=== PATIENT | male | born 1940 | race Caucasian/White ===

== ENCOUNTER 2018-12-30 09:21 | Day surgery (SDC) | payer MEDICARE, OTHER ==
[2018-12-27 08:47] VITALS: BMI 38.5
[~2018-12-30 09:21] MED LIST: DEXAMETHASONE SOD PHOSPHATE 10 MG/ML 1 ML VIAL IV ONE; HEPARIN SODIUM,PORCINE 5,000 UNIT/ML 1 ML VIAL SQ ONE; LACTATED RINGERS 1,000 ML IV SCH; LIDOCAINE 1% 20 ML VIAL (10MG/ML) FOR IV START INTRADERMA PRN; MIDAZOLAM 2 MG/2 ML VIAL IV PRN; Pre Op ABX Message 1 EACH MISC MISCELLANE ONE; fentaNYL (PF) 50 MCG/ML 2 ML AMP IV PRN
[2018-12-30 10:04] VITALS: TEMP 97
[2018-12-30] MEDS ORDERED: ceFAZolin 2,000 MG in DEXTROSE/WATER 1 50ML.BAG IVPB STA (10:20)
[2018-12-30] MEDS ORDERED: ceFAZolin 3 GM in SODIUM CHLORIDE 0.9% 100 ML IVPB ONE (10:35)
[2018-12-30] MEDS ORDERED: ceFAZolin IN SWFI 2 GM/20 ML SYRINGE IVP STA (10:35)
--- NOTE | 2018-12-30 12:04 | P.GSHP ---
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 Patient presents today for wide local excision of left forearm melanoma. Past Medical History Past Medical History: Cancer, Hypertension, Prostate Disorder History of Any Multi-Drug Resistant Organisms: None Reported Past Surgical History: Prostate Surgery Additional Past Surgical History / Comment(s): for prostate cancer , some fingers reatatched, moles removed for cancer Past Anesthesia/Blood Transfusion Reactions: No Reported Reaction Smoking Status: Former smoker - Past Family History Father History Unknown: Yes Family Medical History: Cancer Additional Family Medical History / Comment(s): prostate Medications and Allergies Home Medications Medication Instructions Recorded Confirmed Type Allopurinol [Zyloprim] 300 mg PO DAILY 12/27/18 12/30/18 History Ascorbic Acid [Vitamin C] 500 mg PO DAILY 12/27/18 12/30/18 History Aspirin [Adult Low Dose Aspirin EC] 81 mg PO DAILY 12/27/18 12/30/18 History Losartan/Hydrochlorothiazide 1 each PO HS 12/27/18 12/30/18 History [Losartan-Hctz 100-25 mg Tab] Multivitamins, Thera [Multivitamin 1 tab PO DAILY 12/27/18 12/30/18 History (formulary)] Niacin (Inositol Niacinate) 500 mg PO BID 12/27/18 12/30/18 History [Niacin 500 mg Capsule] [place]-3 Fatty Acids [[place]-3] 1,000 mg PO DAILY 12/27/18 12/30/18 History Potassium Chloride 10 meq PO DAILY 12/27/18 12/30/18 History Propranolol HCl [Inderal LA] 60 mg PO QAM 12/27/18 12/30/18 History Allergies Allergy/AdvReac Type Severity Reaction Status Date / Time No Known Allergies Allergy Verified 12/30/18 09:50 Surgical - Exam Vital Signs Temp Pulse Resp BP Pulse Ox 97 F L 62 16 185/84 99 12/30/18 09:54 12/30/18 09:54 12/30/18 09:54 12/30/18 09:54 12/30/18 09:54 - General well developed, well nourished, no distress - Eyes PERRL - ENT normal pinna - Neck no masses - Respiratory normal expansion - Cardiovascular Rhythm: regular - Abdomen Abdomen: soft, non tender - Integumentary Left forearm melanoma. Patient's melanomas has been previously biopsied. biopsy. The incision site is clean dry and intact. Assessment and Plan Assessment: Left forearm melanoma in situ. We'll perform wide local excision.
[2018-12-30] MEDS ORDERED: PROPOFOL 10 MG/ML 20 ML VIAL IV ONE (12:34)
[2018-12-30] MEDS ORDERED: MIDAZOLAM 2 MG/2 ML VIAL ONE (12:34)
[2018-12-30] MEDS ORDERED: fentaNYL (PF) 50 MCG/ML 2 ML AMP ONE (12:34)
[2018-12-30] MEDS ORDERED: BUPIVACAIN-EPI 0.5%-1:200,000 30 ML VIAL SQ ONE (12:50)
--- NOTE | 2018-12-30 13:05 | P.OP ---
Date of Procedure: 12/30/18 Preoperative Diagnosis: Left forearm melanoma in situ Postoperative Diagnosis: Defer to pathology Procedure(s) Performed: Wide local excision of left forearm melanoma Anesthesia: MAC Surgeon: Reuben Santos Estimated Blood Loss (ml): 5 Pathology: other (Left forearm melanoma in situ) Condition: stable Disposition: PACU Description of Procedure: The patient was placed on the operative table in the supine position. He received IV sedation. The melanoma site was marked. Elliptical skin incision was made around the melanoma. The specimen measured 2.5 x 5 cm. The skin was incised with a 15 blade. Using to cautery the subcutaneous tissues were divided. The wound was reapproximated 2 layers using 3-0 Vicryl and 3-0 Monocryl suture. Dermabond dressing was applied. Patient top she'll well and was sent to recovery in stable condition.
[2018-12-30 13:46] VITALS: BP 155/80; PULSE 61; RESP 18
== END 2018-12-30 13:59 | disposition home or self-care (01) ==
LOC: OR 09:21
PROVIDERS: ATTEND Surgery
DX: D03.62 Melanoma in situ of left upper limb, including shoulder (principal); I10 Essential (primary) hypertension; M10.9 Gout, unspecified; Z85.46 Personal history of malignant neoplasm of prostate; Z87.891 Personal history of nicotine dependence; Z79.82 Long term (current) use of aspirin; Z79.899 Other long term (current) drug therapy
CPT/HCPCS: 11606; 88305; 88342; 88341; J2250; J1644; J1100; J0690; J3010; J2704; 93005

== ENCOUNTER → 2021-08-11 | Outpatient (CLI) | payer MEDICARE, OTHER ==
--- NOTE | 2021-08-11 17:01 | ECHOF ---
Referral Reason:[id number] Chemo expousre MEASUREMENTS -------- HEIGHT: 182.9 cm WEIGHT: 131.5 kg BP: RVIDd: 3.6 cm (< 3.3) IVSd: 2.0 cm (0.6 - 1.1) LVIDd: 4.6 cm (3.9 - 5.3) LVPWd: 1.8 cm (0.6 - 1.1) IVSs: 2.7 cm LVIDs: 2.7 cm LVPWs: 2.5 cm Ao Diam: 4.1 cm (2.0 - 3.7) AV Cusp: 2.4 cm (1.5 - 2.6) LA Diam: 3.5 cm (2.7 - 3.8) MV EXCURSION: 15.662 mm (> 18.000) MV EF SLOPE: 49 mm/s (70 - 150) EPSS: 0.8 cm MV E Jarrod: 0.53 m/s MV DecT: 298 ms MV A Jarrod: 0.91 m/s MV E/A Ratio: 0.58 RAP: 5.00 mmHg RVSP: 10.74 mmHg FINDINGS -------- This was a technically difficult study with suboptimal views. The left ventricular size is normal. There is severe concentric left ventricular hypertrophy. Ove rall left ventricular systolic function is normal with, an EF between 55 - 60 %. The right ventricle is mildly enlarged. The left atrial size is normal. The right atrial size is normal. Lumason used The aortic valve was not well visualized. The mitral valve is normal. There is trace mitral regurgitation. The tricuspid valve appears structurally normal. Trace tricuspid regurgitation present. Right reece tricular systolic pressure is normal at < 35 mmHg. There is no pulmonic regurgitation present. The aortic root size is normal. IVC Not well visulized. There is no pericardial effusion. CONCLUSIONS -------- 1. The left ventricular size is normal. 2. There is severe concentric left ventricular hypertrophy. 3. Overall left ventricular systolic function is normal with, an EF between 55 - 60 %. 4. The right ventricle is mildly enlarged. 5. There is trace mitral regurgitation. 6. Trace tricuspid regurgitation present. ROD TAPE OPERATOR: Abigail Godoy RDCS
== END | disposition home or self-care (01) ==
LOC: RADECHMAIN 10:59
PROVIDERS: ATTEND Internal Medicine Hematology & Oncology
DX: Z01.818 Encounter for other preprocedural examination (principal); I08.1 Rheumatic disorders of both mitral and tricuspid valves
CPT/HCPCS: C8929; Q9950; 93306

== ENCOUNTER 2021-08-29 07:34 | Day surgery (SDC) | payer MEDICARE, OTHER ==
[2021-08-29] MEDS ORDERED: diazePAM 5 MG TAB PO STA (08:47)
[2021-08-29 08:51] VITALS: RESP 18; TEMP 98.1
[2021-08-29] MEDS ORDERED: METHOTREXATE SODIUM (PF) 25 MG/ML 2 ML VIAL INTRATHECA ONE (09:00)
--- NOTE | 2021-08-29 12:42 | FL ---
Lumbar puncture INDICATION: Chemotherapy insertion FINDINGS: Fluoroscopy time: 2 minutes 26 seconds. Images obtained: 3. The procedure was explained to the patient. Risks complications and benefits were discussed. Alternat giuliana were discussed. All questions were answered. Informed consent was obtained. A timeout was performed. The L4-5 level was chosen for access. Maximum barrier sterile technique was utilized. The skin was cl eansed with Betadine and the patient sterilely prepped and draped in the usual manner. The skin and d eeper tissue was anesthetized with 1% Lidocaine. Utilizing a 22-gauge spinal needle the spinal canal was accessed with difficulty due to the narrow access. There was a slow CSF return which was initiall y slightly bloody. Total of 4 cc were withdrawn. The procedure was then turned over 4 chemotherapy in sertion. Following insertion and flush of the chemotherapeutic agent procedure was returned to radiology and t he stylette was replaced and the needle withdrawn. Fluoroscopic spot images were obtained. The patient tolerated the procedure well. Discharge instructions were discussed with the patient. Th e patient was transferred to the floor for postprocedure recovery. IMPRESSIONS: 1. Successful Lumbar Puncture for chemotherapy placement.
[2021-08-29 14:22] VITALS: BP 172/73; PULSE 63
== END 2021-08-29 15:01 | disposition home or self-care (01) ==
LOC: RADPROMAIN 07:34
PROVIDERS: ATTEND Internal Medicine Hematology & Oncology
DX: C61 Malignant neoplasm of prostate (principal)
CPT/HCPCS: 88108; 62328; J9260

== ENCOUNTER 2021-09-19 07:55 | Day surgery (SDC) | payer MEDICARE, OTHER ==
[2021-09-19] MEDS ORDERED: METHOTREXATE SODIUM (PF) 25 MG/ML 2 ML VIAL INTRATHECA ONE (09:00)
[2021-09-19 09:28] VITALS: TEMP 98.5
--- NOTE | 2021-09-19 10:18 | P.PCN ---
Date of Procedure: 09/19/21 Preoperative Diagnosis: DLBCL Postoperative Diagnosis: DLBCL Procedure(s) Performed: LP with IR, prophylactic IT MTX administration Anesthesia: local Estimated Blood Loss (ml): 0 IV fluids (ml): 0 Urine output (ml): 0 Pathology: none sent Condition: stable Disposition: same day Indications for Procedure: DLBCL, testicular Description of Procedure: LP performed by Interventional Radiologist. 3.8cc CSF removed. 12mg Sterile, preservative free methotrexate diluted with sterile NS to volume of 2.4cc was instilled over 2.5 minutes slow push. Flushed line with 1.4cc sterile NS in latex free syringe. Pt tolerated well. No symptoms reported during procedure.
--- NOTE | 2021-09-19 10:32 | FL ---
Lumbar puncture INDICATION: Chemotherapy FINDINGS: Fluoroscopy time: 0.39 minutes. Images obtained: One. The procedure was explained to the patient. Risks complications and benefits were discussed. Alternat giuliana were discussed. All questions were answered. Informed consent was obtained. A timeout was performed. The L4-5 level was chosen for access. Maximum barrier sterile technique was utilized. The skin was cl eansed with Betadine and the patient sterilely prepped and draped in the usual manner. The skin and d eeper tissue was anesthetized with 1% Lidocaine. Utilizing a 22-gauge 5 inch spinal needle the spinal canal was accessed. Approximately 1 1/2 inches remained above the skin surface. Good CSF return was evident. Approximately 3.8 mL of clear CSF was obtained. Procedure was turned over to oncology for in jection. Following completion of the injection the stylet was replaced and the needle withdrawn. The patient tolerated the procedure well. Discharge instructions were discussed with the patient. Th e patient was transferred to the floor for monitoring prior to discharge. IMPRESSIONS: 1. Successful Lumbar Puncture for chemotherapy.
[2021-09-19 12:36] VITALS: RESP 16
[2021-09-19 14:08] VITALS: BP 124/59; PULSE 68
== END 2021-09-19 13:58 | disposition home or self-care (01) ==
LOC: RADPROMAIN 07:55
PROVIDERS: ATTEND Internal Medicine Hematology & Oncology
DX: Z51.11 Encounter for antineoplastic chemotherapy (principal); C83.30 Diffuse large B-cell lymphoma, unspecified site
CPT/HCPCS: 96450; 88108; 62328; J9260

== ENCOUNTER 2021-10-11 08:01 | Day surgery (SDC) | payer MEDICARE, OTHER ==
[2021-10-11 08:43] VITALS: RESP 16
[2021-10-11] MEDS ORDERED: METHOTREXATE SODIUM (PF) 25 MG/ML 2 ML VIAL INTRATHECA ONE (09:00)
--- NOTE | 2021-10-11 11:14 | FL ---
Lumbar puncture INDICATION: Chemotherapy insertion FINDINGS: Fluoroscopy time: 1 minute seconds. Images obtained: 2. The procedure was explained to the patient. Risks complications and benefits were discussed. Alternat giuliana were discussed. All questions were answered. Informed consent was obtained. A timeout was performed. The L3-L4 level was chosen for access. Large pillow was utilized under the abdomen. Maximum barrier s terile technique was utilized. The skin was cleansed with Betadine and the patient sterilely prepped and draped in the usual manner. The skin and deeper tissue was anesthetized with 1% Lidocaine. Utiliz ing a 5 inch 22-gauge spinal needle the spinal canal was accessed with difficulty. This was a bloody tap was poor CSF return. Replacing the stylet and adjustment are returned better CSF flow. Total of 4 mL of blood-tinged CSF was returned into 2 vials 2 mL each. Vials are labeled. Procedure was turned over to oncology for chemotherapy insertion. Upon completion of the chemotherapy, the stylet was replaced and the needle withdrawn. The patient to lerated the procedure well. IMPRESSIONS: 1. Successful Lumbar Puncture.
[2021-10-11 12:17] VITALS: TEMP 97.1
[2021-10-11 15:17] VITALS: BP 174/76; PULSE 83
== END 2021-10-11 15:30 | disposition home or self-care (01) ==
LOC: RADPROMAIN 08:01 → 6PED 10:14 → RADPROMAIN 15:30
PROVIDERS: ATTEND Internal Medicine Hematology & Oncology
DX: Z51.11 Encounter for antineoplastic chemotherapy (principal); C83.38 Diffuse large B-cell lymphoma, lymph nodes of multiple sites
CPT/HCPCS: 88108; 96450; J9260; 62328

== ENCOUNTER 2021-11-07 08:06 | Day surgery (SDC) | payer MEDICARE, OTHER ==
[2021-11-07 08:35] VITALS: RESP 16; TEMP 98.3
[2021-11-07] MEDS ORDERED: METHOTREXATE SODIUM (PF) 25 MG/ML 2 ML VIAL INTRATHECA ONE (09:00)
--- NOTE | 2021-11-07 11:08 | FL ---
PROCEDURE: Lumbar puncture, access for intrathecal chemotherapy. 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 Intrathecal chemotherap y 4 of 4. COMPLICATIONS: None SEDATION: None. The patient and the patient's vital signs were monitored by qualified independent radiology pe jass. TECHNIQUE: The procedure and potential risks were explained to patient and an informed consent was obtained with teach back. Site and side was verified. A time out was performed. The patient was placed prone on the fluoroscopy table and the L4-L5 level was localized and the skin was marked and was prepped and draped in the usual sterile fashion. Lidocaine was used for local anesthesia. Utilizing fluoroscopic guidance a 22-gauge 5 inch spinal nee dle was placed through the skin and into the subarachnoid space. Clear CSF was visualized but was very slow. Flow eventually stopped. Manipulation subsequently yielde d blood-tinged CSF. Approximately 3.5 mL of clear but slightly blood-tinged cerebral spinal fluid was obtained. Subsequently, oncology nurse practitioner Nikki Gallagher administered the intrathecal chemotherapy over 2 minutes. The patient tolerated the procedure well and was sent back to the recovery room in satisfactory condi tion. The fluid was sent to the lab for analysis. The estimated blood loss was minimal. The patient's condition was unchanged following the procedure. Fluoroscopy time: 12 seconds Total images: 2 IMPRESSION: Successful accumulation of 3.5 mL of CSF. Oncology nurse practitioner administered the last round of intrathecal chemotherapy.
[2021-11-07 15:06] VITALS: BP 127/67; PULSE 64
== END 2021-11-07 14:03 | disposition home or self-care (01) ==
LOC: RADPROMAIN 08:06
PROVIDERS: ATTEND Internal Medicine Hematology & Oncology
DX: C83.30 Diffuse large B-cell lymphoma, unspecified site (principal)
CPT/HCPCS: 62328; 88108; J9260

== ENCOUNTER 2021-11-19 18:19 | Inpatient (IN) | payer OTHER, MEDICARE ==
--- NOTE | 2021-11-19 18:33 | ED ---
General Adult HPI - General Chief complaint: Weakness Stated complaint: weakness Time Seen by Provider: 11/19/21 18:29 Source: patient, EMS Mode of arrival: EMS Limitations: physical limitation - History of Present Illness Initial comments: Patient presents to the ED by ambulance for evaluation. Patient states that he last received chemotherapy treatment for his lymphoma 2 weeks ago, and he states that he has felt generally weak for the past 2-3 days or so. Patient also states that he feels that he is dehydrated. Patient states that he has not been eating or drinking much recently due to lack of appetite. Patient also states that he has fallen a couple of times over the past 2 days due to his generalized weakness, but he denies sustaining any injuries or LOC/syncope. Patient denies having any pain, fever or chills, headache injury, headache, focal numbness/weakness/neuro deficit, visual changes, speech difficulty, neck/back/extremity pain, chest pain, dyspnea, cough or cold symptoms, dizziness, palpitations, abdominal pain, nausea/vomiting/diarrhea, bloody or melanotic stool, dysuria or urinary symptoms, or any other symptoms or comp laints. Patient states that he is fully vaccinated against Covid. - Related Data Home Medications Medication Instructions Recorded Confirmed Ascorbic Acid [Vitamin C] 500 mg PO DAILY 12/27/18 11/07/21 Aspirin [Adult Low Dose Aspirin EC] 81 mg PO DAILY 12/27/18 10/27/21 Losartan/Hydrochlorothiazide 1 each PO DAILY 12/27/18 11/07/21 [Losartan-Hctz 100-25 mg Tab] Multivitamins, Thera [Multivitamin 1 tab PO DAILY 12/27/18 10/27/21 (formulary)] Niacin (Inositol Niacinate) 500 mg PO BID 12/27/18 10/27/21 [Niacin 500 mg Capsule] [place]-3 Fatty Acids [[place]-3] 1,000 mg PO DAILY 12/27/18 10/27/21 Potassium Chloride [Potassium 10 meq PO DAILY 12/27/18 10/27/21 Chloride ER] Propranolol HCl [Inderal LA] 60 mg PO QAM 12/27/18 10/27/21 allopurinoL [Zyloprim] 300 mg PO DAILY 12/27/18 10/27/21 Allergies Allergy/AdvReac Type Severity Reaction Status Date / Time No Known Allergies Allergy Verified 11/19/21 18:27 Review of Systems ROS Statement: Those systems with pertinent positive or pertinent negative responses have been documented in the HPI. ROS Other: All systems not noted in ROS Statement are negative. Past Medical History Past Medical History: Cancer, Hypertension, Prostate Disorder Additional Past Medical History / Comment(s): Diffuse large B cell lymphoma, testicular, prostate, melanoma, currently getting chemo for Lymphoma got it Sunday, sunday and Sunday History of Any Multi-Drug Resistant Organisms: None Reported Past Surgical History: Prostate Surgery Additional Past Surgical History / Comment(s): for prostate cancer , some fingers reatatched, moles removed for cancer, lumbar puncture and Intrathecal Chemo Past Anesthesia/Blood Transfusion Reactions: No Reported Reaction Past Psychological History: No Psychological Hx Reported Smoking Status: Former smoker Past Alcohol Use History: Daily, Rare Past Drug Use History: None Reported - Past Family History Father History Unknown: Yes Family Medical History: Cancer Additional Family Medical History / Comment(s): prostate General Exam Limitations: physical limitation General appearance: alert, in no apparent distress Head exam: Present: atraumatic Eye exam: Present: normal appearance, PERRL, EOMI ENT exam: Present: normal oropharynx, mucous membranes dry Neck exam: Present: other (Trachea is in midline). Absent: tenderness, meningismus, full ROM Respiratory exam: Present: normal lung sounds bilaterally. Absent: respiratory distress, wheezes, rales, rhonchi, stridor Cardiovascular Exam: Present: regular rate, normal rhythm, normal heart sounds, other (Normal radial pulses bilaterally) GI/Abdominal exam: Present: soft. Absent: distended, tenderness, guarding Rectal exam: Present: normal rectal tone, other (Brown stool). Absent: tenderness Extremities exam: Present: other (Negative Homans sign bilaterally). Absent: tenderness, pedal edema, calf tenderness Neurological exam: Present: alert, oriented X3. Absent: motor sensory deficit Psychiatric exam: Present: normal affect, normal mood Skin exam: Present: warm, dry, intact, pallor Course Vital Signs 11/19/21 11/19/21 11/19/21 18:27 19:51 20:00 Temperature 98.3 F Pulse Rate 72 72 87 Respiratory 18 24 22 Rate Blood Pressure 131/63 131/75 131/60 O2 Sat by Pulse 92 L 100 97 Oximetry - Reevaluation(s) Reevaluation #1: 11/19/21 20:01 Case, H&P, test results and ED management thus far were discussed with Dr. Szymanski. She accepts hospital admission. She recommends hematology/oncology consultation. She has no further recommendations at this time. 11/19/21 20:15 Patient denies development of any new symptoms while in the ED. Patient and son are aware the patient's test results and my discussion with Dr. Szymanski as above. They both agree with blood transfusion and hospital admission at this time. EKG Findings - EKG Comments: EKG Findings:: Normal sinus rhythm, right bundle branch block, ventricular rate of 72 bpm, normal WA interval, QRS duration of 128 ms, normal QT interval, normal axis, no significant change when compared to 12/30/2018 EKG Medical Decision Making - Medical Decision Making I suspect that the patient's generalized weakness is likely secondary to dehydration and anemia. Patient has been hydrated with IV fluids in the ED, and a RBC blood transfusion has been ordered. Patient has been hemodynamically stable while in the ED. Dr. Szymanski has accepted hospital admission. - Lab Data Result diagrams: 11/19/21 18:57 11/19/21 18:57 Lab Results 11/19/21 11/19/21 11/19/21 Range/Units 18:57 18:57 18:57 WBC 3.0 L (3.8-10.6) k/uL RBC 1.37 L (4.30-5.90) m/uL Hgb 4.6 L* (13.0-17.5) gm/dL Hct 13.4 L* (39.0-53.0) % MCV 98.0 (80.0-100.0) fL MCH 33.5 (25.0-35.0) pg MCHC 34.2 (31.0-37.0) g/dL RDW 16.0 H (11.5-15.5) % Plt Count 51 L (150-450) k/uL MPV 10.1 Neutrophils % (Manual) 64 % Band Neuts % (Manual) 13 % Lymphocytes % (Manual) 6 % Monocytes % (Manual) 9 % Eosinophils % (Manual) 2 % Metamyelocytes % 4 % Myelocytes % 1 % Blast Cells % 1 H* % Neutrophils # (Manual) 2.30 (1.3-7.7) k/uL Lymphocytes # (Manual) 0.18 L (1.0-4.8) k/uL Monocytes # (Manual) 0.27 (0-1.0) k/uL Eosinophils # (Manual) 0.06 (0-0.7) k/uL Metamyelocytes # (Man) 0.12 H (0) k/uL Myelocytes # (Manual) 0.03 H (0) k/uL Blast Cells # (Man) 0.03 H (0) k/uL Nucleated RBCs 0 (0-0) /100 WBC Manual Slide Review Performed Polychromasia Present Poikilocytosis Slight Anisocytosis (manual) Present PT 12.4 H (9.0-12.0) sec INR 1.2 H (<1.2) APTT 22.6 (22.0-30.0) sec D-Dimer 0.69 H (<0.60) mg/L FEU Sodium 134 L (137-145) mmol/L Potassium 3.5 (3.5-5.1) mmol/L Chloride 104 (98-107) mmol/L Carbon Dioxide 22 (22-30) mmol/L Anion Gap 8 mmol/L BUN 27 H (9-20) mg/dL Creatinine 1.71 H (0.66-1.25) mg/dL Est GFR (CKD-EPI)AfAm 43 (>60 ml/min/1.73 sqM) Est GFR (CKD-EPI)NonAf 37 (>60 ml/min/1.73 sqM) Glucose 126 H (74-99) mg/dL Plasma Lactic Acid Mariano (0.7-2.0) mmol/L Calcium 7.9 L (8.4-10.2) mg/dL Magnesium 1.6 (1.6-2.3) mg/dL Total Bilirubin 1.5 H (0.2-1.3) mg/dL AST 22 (17-59) U/L ALT 20 (4-49) U/L Alkaline Phosphatase 68 (38-126) U/L Troponin I (0.000-0.034) ng/mL Total Protein 4.6 L (6.3-8.2) g/dL Albumin 2.7 L (3.5-5.0) g/dL TSH 2.410 (0.465-4.680) mIU/L Stool Occult Blood (Negative) Coronavirus (PCR) (Not Detectd) 11/19/21 11/19/21 11/19/21 Range/Units 18:57 18:57 18:57 WBC (3.8-10.6) k/uL RBC (4.30-5.90) m/uL Hgb (13.0-17.5) gm/dL Hct (39.0-53.0) % MCV (80.0-100.0) fL MCH (25.0-35.0) pg MCHC (31.0-37.0) g/dL RDW (11.5-15.5) % Plt Count (150-450) k/uL MPV Neutrophils % (Manual) % Band Neuts % (Manual) % Lymphocytes % (Manual) % Monocytes % (Manual) % Eosinophils % (Manual) % Metamyelocytes % % Myelocytes % % Blast Cells % % Neutrophils # (Manual) (1.3-7.7) k/uL Lymphocytes # (Manual) (1.0-4.8) k/uL Monocytes # (Manual) (0-1.0) k/uL Eosinophils # (Manual) (0-0.7) k/uL Metamyelocytes # (Man) (0) k/uL Myelocytes # (Manual) (0) k/uL Blast Cells # (Man) (0) k/uL Nucleated RBCs (0-0) /100 WBC Manual Slide Review Polychromasia Poikilocytosis Anisocytosis (manual) PT (9.0-12.0) sec INR (<1.2) APTT (22.0-30.0) sec D-Dimer (<0.60) mg/L FEU Sodium (137-145) mmol/L Potassium (3.5-5.1) mmol/L Chloride (98-107) mmol/L Carbon Dioxide (22-30) mmol/L Anion Gap mmol/L BUN (9-20) mg/dL Creatinine (0.66-1.25) mg/dL Est GFR (CKD-EPI)AfAm (>60 ml/min/1.73 sqM) Est GFR (CKD-EPI)NonAf (>60 ml/min/1.73 sqM) Glucose (74-99) mg/dL Plasma Lactic Acid Mariano 1.6 (0.7-2.0) mmol/L Calcium (8.4-10.2) mg/dL Magnesium (1.6-2.3) mg/dL Total Bilirubin (0.2-1.3) mg/dL AST (17-59) U/L ALT (4-49) U/L Alkaline Phosphatase (38-126) U/L Troponin I 0.020 (0.000-0.034) ng/mL Total Protein (6.3-8.2) g/dL Albumin (3.5-5.0) g/dL TSH (0.465-4.680) mIU/L Stool Occult Blood (Negative) Coronavirus (PCR) Not Detected (Not Detectd) 11/19/21 Range/Units 19:56 WBC (3.8-10.6) k/uL RBC (4.30-5.90) m/uL Hgb (13.0-17.5) gm/dL Hct (39.0-53.0) % MCV (80.0-100.0) fL MCH (25.0-35.0) pg MCHC (31.0-37.0) g/dL RDW (11.5-15.5) % Plt Count (150-450) k/uL MPV Neutrophils % (Manual) % Band Neuts % (Manual) % Lymphocytes % (Manual) % Monocytes % (Manual) % Eosinophils % (Manual) % Metamyelocytes % % Myelocytes % % Blast Cells % % Neutrophils # (Manual) (1.3-7.7) k/uL Lymphocytes # (Manual) (1.0-4.8) k/uL Monocytes # (Manual) (0-1.0) k/uL Eosinophils # (Manual) (0-0.7) k/uL Metamyelocytes # (Man) (0) k/uL Myelocytes # (Manual) (0) k/uL Blast Cells # (Man) (0) k/uL Nucleated RBCs (0-0) /100 WBC Manual Slide Review Polychromasia Poikilocytosis Anisocytosis (manual) PT (9.0-12.0) sec INR (<1.2) APTT (22.0-30.0) sec D-Dimer (<0.60) mg/L FEU Sodium (137-145) mmol/L Potassium (3.5-5.1) mmol/L Chloride (98-107) mmol/L Carbon Dioxide (22-30) mmol/L Anion Gap mmol/L BUN (9-20) mg/dL Creatinine (0.66-1.25) mg/dL Est GFR (CKD-EPI)AfAm (>60 ml/min/1.73 sqM) Est GFR (CKD-EPI)NonAf (>60 ml/min/1.73 sqM) Glucose (74-99) mg/dL Plasma Lactic Acid Mariano (0.7-2.0) mmol/L Calcium (8.4-10.2) mg/dL Magnesium (1.6-2.3) mg/dL Total Bilirubin (0.2-1.3) mg/dL AST (17-59) U/L ALT (4-49) U/L Alkaline Phosphatase (38-126) U/L Troponin I (0.000-0.034) ng/mL Total Protein (6.3-8.2) g/dL Albumin (3.5-5.0) g/dL TSH (0.465-4.680) mIU/L Stool Occult Blood Negative (Negative) Coronavirus (PCR) (Not Detectd) - Radiology Data Radiology results: report reviewed (Chest x-ray: No acute cardiopulmonary disease/process. COPD changes.) Critical Care Time Critical Care Time: Yes Total Critical Care Time: 30 Disposition Clinical Impression: Generalized weakness, Dehydration, Anemia, Renal insufficiency, Leukopenia, Thrombocytopenia Disposition: ADMITTED IP TO THIS [facility] Condition: Stable Is patient prescribed a controlled substance at d/c from ED?: No Referrals: Piter Pride MD [Primary Care Provider] - 1-2 days Time of Disposition: 20:16
[2021-11-19] MEDS ORDERED: SODIUM CHLORIDE 0.9% 1,000 ML IV STA (18:43)
[2021-11-19 19:20] LABS: MCH 33.5 pg (25.0-35.0); MCHC 34.2 g/dL (31.0-37.0); Mean Platelet Volume 10.1; Platelet Count 51 k/uL (150-450); Poikilocytosis Slight; RBC 1.37 m/uL (4.30-5.90)
[2021-11-19 19:23] LABS: HCT 13.4 % (39.0-53.0); HGB 4.6 gm/dL (13.0-17.5); INR 1.2 (<1.2); Partial Thromboplastin Time 22.6 sec (22.0-30.0); Prothrombin Time 12.4 sec (9.0-12.0)
[2021-11-19 19:25] LABS: Albumin 2.7 g/dL (3.5-5.0); Calcium 7.9 mg/dL (8.4-10.2); Magnesium 1.6 mg/dL (1.6-2.3); Potassium 3.5 mmol/L (3.5-5.1); Total Bilirubin 1.5 mg/dL (0.2-1.3); Total Protein 4.6 g/dL (6.3-8.2)
--- NOTE | 2021-11-19 19:29 | XR ---
EXAMINATION TYPE: XR chest 1V portable DATE OF EXAM: 11/19/2021 7:03 PM COMPARISON:None CLINICAL INDICATION:Male, 81 years old with history of Weakness; TECHNIQUE: Frontal view of the chest. FINDINGS: Lungs/Pleura: There is increased lucency of the lung apices. No evidence of pneumothorax, pleural eff usion or focal consolidation. Pulmonary vascularity: Unremarkable. Heart/mediastinum: Cardiomediastinal silhouette is prominent in size. Musculoskeletal: No acute osseous pathology. Lines/Tubes: [id number] projecting over the right hemithorax with distal tip projecting over the superior vena cava. IMPRESSION: No acute cardiopulmonary disease/process. COPD changes
[2021-11-19 19:47] LABS: Band Neutrophils % 13 %; Eosinophils # (M) 0.06 k/uL (0-0.7); Lymphocytes # (M) 0.18 k/uL (1.0-4.8); Metamyelocytes # (M) 0.12 k/uL (0); Metamyelocytes % 4 %; Monocytes # (M) 0.27 k/uL (0-1.0); Myelocytes # (M) 0.03 k/uL (0); Myelocytes % 1 %; Neutrophils % (M) 64 %
[2021-11-19 19:49] LABS: Blast Cells # (M) 0.03 k/uL (0); Nucleated Red Blood Cells 0 /100 WBC (0-0); Total Cells Counted 100
[2021-11-19 19:50] LABS: Anisocytosis (M) Present; Polychromasia Present
[2021-11-19] MEDS: SODIUM CHLORIDE 0.9% 1,000 ML IV SCH (20:55)
[2021-11-20 02:36] LABS: MCH 32.9 pg (25.0-35.0); MCHC 34.5 g/dL (31.0-37.0); MCV 95.2 fL (80.0-100.0); Mean Platelet Volume 10.2; Poikilocytosis Slight; RBC 2.02 m/uL (4.30-5.90); RDW 15.6 % (11.5-15.5)
[2021-11-20 02:46] LABS: HCT 19.3 % (39.0-53.0); HGB 6.7 gm/dL (13.0-17.5); Platelet Count 46 k/uL (150-450)
[2021-11-20 03:27] LABS: Band Neutrophils % 41 %; Eosinophils # (M) 0.09 k/uL (0-0.7); Lymphocytes # (M) 0.16 k/uL (1.0-4.8); Metamyelocytes # (M) 0.06 k/uL (0); Metamyelocytes % 2 %; Monocytes # (M) 0.06 k/uL (0-1.0); Neutrophils % (M) 44 %; Nucleated Red Blood Cells 5 /100 WBC (0-0); Promyelocytes # (M) 0.09 k/uL (0); Promyelocytes % 3 %; Total Cells Counted 200; WBC 3.1 k/uL (3.8-10.6)
[2021-11-20 03:28] LABS: Anisocytosis (M) Present; Poikilocytosis (M) Present
[2021-11-20 06:32] LABS: Appearance,Urine Clear (Clear); Bilirubin,Urine Negative (Negative); Blood,Urine Negative (Negative); Color,Urine Yellow; Glucose,Urine (UA) Negative (Negative); Ketones,Urine Negative (Negative); Leukocyte Esterase,Urine Negative (Negative); Nitrite,Urine Negative (Negative); Protein,Urine Negative (Negative); Specific Gravity,Urine 1.009 (1.001-1.035); Urobilinogen,Urine <2.0 mg/dL (<2.0)
[2021-11-20 06:59] LABS: MCH 33.2 pg (25.0-35.0); MCHC 34.5 g/dL (31.0-37.0); MCV 96.4 fL (80.0-100.0); Mean Platelet Volume 9.6; Poikilocytosis Slight; RBC 2.04 m/uL (4.30-5.90); RDW 15.6 % (11.5-15.5); WBC 3.1 k/uL (3.8-10.6)
[2021-11-20 07:07] LABS: HGB 6.8 gm/dL (13.0-17.5)
[2021-11-20 07:08] LABS: HCT 19.7 % (39.0-53.0); Platelet Count 46 k/uL (150-450)
[2021-11-20 08:55] LABS: African American GFR (CKD) 46.5 (60.0-200.0); Albumin/Globulin Ratio 2.5 (1.60-3.17); Anion Gap 12.4 mmol/L (10.00-18.00); BUN/Creat Ratio 13.81 Ratio (12.00-20.00); Band Neutrophils % 5 %; Blood Urea Nitrogen 22.1 mg/dL (9.0-27.0); Calcium 7.5 mg/dL (8.7-10.3); Carbon Dioxide 20.6 mmol/L (20.0-27.5); Eosinophils # (M) 0.06 k/uL (0-0.7); Globulin 1.2 g/dL (1.6-3.3); Lymphocytes # (M) 0.12 k/uL (1.0-4.8); Metamyelocytes # (M) 0.12 k/uL (0); Metamyelocytes % 4 %; Monocytes # (M) 0.12 k/uL (0-1.0); Myelocytes # (M) 0.16 k/uL (0); Myelocytes % 5 %; Neutrophils % (M) 76 %; Non-African American GFR(CKD) 40.1 (60.0-200.0); Nucleated Red Blood Cells 1 /100 WBC (0-0); Potassium 3.4 mmol/L (3.5-5.5); Promyelocytes # (M) 0.03 k/uL (0); Promyelocytes % 1 %; Total Cells Counted 200; Total Protein 4.2 g/dL (6.2-8.2)
[2021-11-20 08:56] LABS: Anisocytosis (M) Present; Mixed Population RBC Present
[2021-11-20 12:22] LABS: ALT 17 U/L (4-49); AST 21 U/L (17-59); African American GFR (CKD) 56 (>60 ml/min/1.73 sqM); Albumin 2.5 g/dL (3.5-5.0); Albumin/Globulin Ratio 1.3; Alkaline Phosphatase 63 U/L (38-126); Anion Gap 3 mmol/L; Blood Urea Nitrogen 21 mg/dL (9-20); Calcium 7.5 mg/dL (8.4-10.2); Carbon Dioxide 22 mmol/L (22-30); Chloride 110 mmol/L (98-107); Globulin 1.9 g/dL; Glucose 112 mg/dL (74-99); LDH 745 U/L (313-618); Magnesium 1.6 mg/dL (1.6-2.3); Non-African American GFR(CKD) 48 (>60 ml/min/1.73 sqM); Phosphorus 3.6 mg/dL (2.5-4.5); Potassium 3.5 mmol/L (3.5-5.1); Sodium 135 mmol/L (137-145); Total Bilirubin 1.4 mg/dL (0.2-1.3); Total Protein 4.4 g/dL (6.3-8.2); Uric Acid 8.1 mg/dL (3.5-8.5)
[2021-11-20] MEDS: SODIUM CHLORIDE 0.9% 1,000 ML IV SCH ×2 (14:51→17:44)
[2021-11-20] MEDS ORDERED: DOCUSATE 100 MG CAP PO PRN (15:40)
[2021-11-20] MEDS ORDERED: ONDANSETRON 4 MG TAB PO PRN (15:40)
[2021-11-20] MEDS ORDERED: NYSTATIN 100,000 UNIT/ML SUSP 500,000 UNIT/5 ML CUP PO PRN (15:40)
--- NOTE | 2021-11-20 15:44 | P.HPIM ---
History of Present Illness H&P Date: 11/20/21 Chief Complaint: weakness 2 days this is an 81-year-old pleasant gentleman, patient of Dr. Sesaylying history of B-cell lymphoma, diagnosed to the testicle lesion, in August 2021, also history of melanoma, and prostate cancer, who now follows by [facility] physician, chemotherapy, for which he has 2 more treatments to go. He goes for chemotherapy, 3 times a week, last treatment, was 2 weeks ago. He felt weak for the past 2-3 days, with diminished appetite, not eating or drinking, he has lightheadedness and dizziness, and has fallen, for the past few days. He was last seen by Dr. Pride PCP, one year ago, however he is fully vaccinated against coronavirus including the booster shot in October. He denies having any fever or chills, headache, isolated motor deficits, in the upper and lower extremity, and no chest pain. Patient denies any syncope next Emergency roomEKG, shows normal sinus rhythm, right bundle branch block, ventricular rate 72, normal VT interval, normal QRS, no change compared to December 2018, hemoglobin on entry was 4.6, WBC count of 3.0, platelet count of 51, patient received 2 units of packed red blood cell. INR 1.2,creatinine of 1.7, sodium of 134, potassium 3.5, BUN of 27 total bilirubin of 1.5, liver function tests otherwise normal, protein is low at 4.6, albumin 2.7, glucose of 126. Patient admitted for dehydration, acute kidney injury, and pancytopenia with severe anemia consult with oncology coronavirus negative Hemoccult negative. Urinalysis negative Review of Systems Constitutional: Reports as per HPI, Reports anorexia, Reports chills, Reports fatigue, Reports lethargy, Reports malaise, Denies chronic pain, Denies fever, Denies weight loss Ears, nose, mouth and throat: Reports as per HPI, Denies dysphagia, Denies odynophagia Cardiovascular: Reports as per HPI, Reports decreased exercise tolerance, Denies chest pain, Denies dyspnea on exertion, Denies leg edema, Denies palpitations, Denies shortness of breath Respiratory: Reports as per HPI, Denies cough with sputum, Denies dyspnea, Denie s home oxygen Gastrointestinal: Reports as per HPI Genitourinary: Reports as per HPI, Denies nocturia, Denies urinary retention Musculoskeletal: Reports as per HPI, Denies gait dysfunction Integumentary: Reports as per HPI Neurological: Reports as per HPI, Reports weakness, Denies aphasia, Denies balance difficulties, Denies lack of coordination, Denies loss of vision, Denies memory loss, Denies motor disturbance Psychiatric: Reports as per HPI, Denies anhedonia, Denies anxiety, Denies anxiety attacks, Denies change in appetite, Denies change in libido, Denies change in sleep habits, Denies confusion, Denies depression, Denies difficulty concentrating, Denies disorientation, Denies hallucinations, Denies hopelessness, Denies hypersomnia, Denies insomnia, Denies irritability, Denies memory loss, Denies mood swings, Denies paranoia, Denies sadness/tearfulness, Denies sleep disturbances, Denies suicidal ideation Endocrine: Denies as per HPI, Denies cold intolerance, Denies deepening of the voice, Denies excessive sweating, Denies excessive thirst, Denies fatigue, Denies flushing, Denies heat intolerance, Denies high blood sugars, Denies increase in ring/shoe/hat size, Denies low blood sugars, Denies nocturia, Denies palpitations, Denies polydipsia, Denies polyphagia, Denies polyuria, Denies proptosis, Denies recent glucocorticoid use, Denies thyroid mass, Denies weight change Past Medical History Past Medical History: Cancer, Hypertension, Prostate Disorder Additional Past Medical History / Comment(s): Diffuse large B cell lymphoma, testicular, prostate, melanoma, currently getting chemo for Lymphoma, last 11/07/21, next scheduled 11/29/21 History of Any Multi-Drug Resistant Organisms: None Reported Past Surgical History: Prostate Surgery Additional Past Surgical History / Comment(s): for prostate cancer , some fingers reattached, moles removed for cancer, lumbar puncture and Intrathecal Chemo Past Anesthesia/Blood Transfusion Reactions: No Reported Reaction Past Psychological History: No Psychological Hx Reported Smoking Status: Former smoker Past Alcohol Use History: Daily, Rare Past Drug Use History: None Reported Additional History: father with prostate cancer, brother with prostate cancer, mother secondary to CVA, sister healthy, 2 daughters 2 sons both healthy - Past Family History Father History Unknown: Yes Family Medical History: Cancer Additional Family Medical History / Comment(s): prostate Medications and Allergies Home Medications Medication Instructions Recorded Confirmed Type Aspirin [Adult Low Dose Aspirin EC] 81 mg PO DAILY 12/27/18 11/19/21 History Potassium Chloride [Potassium 10 meq PO TID 12/27/18 11/19/21 History Chloride ER] allopurinoL [Zyloprim] 300 mg PO Q48H 12/27/18 11/19/21 History Docusate [Colace] 100 mg PO DAILY PRN 11/19/21 11/19/21 History Losartan Potassium 100 mg PO DAILY 11/19/21 11/19/21 History Niacin 500 mg PO DAILY 11/19/21 11/19/21 History Nystatin 100,000 Unit/ml Susp 4 ml PO QID PRN 11/19/21 11/19/21 History [Mycostatin Oral Susp] Propranolol HCl [Inderal] 60 mg PO DAILY 11/19/21 11/19/21 History Psyllium Husk [Metamucil] 0.4 gm PO DAILY 11/19/21 11/19/21 History hydroCHLOROthiazide [Hydrodiuril] 25 mg PO DAILY 11/19/21 11/19/21 History ondansetron HCL [Zofran] 8 mg PO Q6H PRN 11/19/21 11/19/21 History predniSONE 100 mg PO DIRECTED 11/19/21 11/19/21 History Allergies Allergy/AdvReac Type Severity Reaction Status Date / Time No Known Allergies Allergy Verified 11/19/21 21:04 Physical Exam Vitals: Vital Signs Temp Pulse Pulse Resp BP BP Pulse Ox 11/20/21 05:05 98.9 F 66 20 118/61 100 11/20/21 05:00 18 11/20/21 04:15 97.9 F 61 18 135/64 99 11/20/21 03:00 98.3 F 62 22 126/60 97 11/20/21 01:58 98.5 F 69 24 134/68 96 11/20/21 01:57 98.4 F 69 24 134/68 97 11/20/21 00:46 98.5 F 69 22 126/65 96 11/20/21 00:29 98.9 F 67 22 125/56 97 11/20/21 00:25 98.9 F 66 22 125/56 97 11/20/21 00:19 98.7 F 66 22 135/64 97 01/16/22 00:16 98.7 F 66 22 136/68 97 11/20/21 00:06 98.8 F 65 22 136/68 97 11/19/21 23:59 98.8 F 63 22 137/66 97 11/19/21 23:58 98.8 F 70 22 139/67 98 11/19/21 23:06 98.8 F 68 24 130/74 98 11/19/21 23:00 68 22 130/59 97 11/19/21 22:36 98.7 F 67 22 122/51 11/19/21 22:20 98.3 F 66 22 118/65 11/19/21 22:00 98.5 F 66 22 118/55 97 11/19/21 21:00 67 20 117/82 97 11/19/21 20:00 87 22 131/60 97 11/19/21 19:51 72 24 131/75 100 11/19/21 18:27 98.3 F 72 18 131/63 92 L Intake and Output 11/19/21 11/20/21 11/20/21 22:59 06:59 14:59 Intake Total 0 1060 Output Total 350 Balance 0 710 Intake: Intake, IV Titration 200 Amount Sodium Chloride 0.9% 1, 200 000 ml @ 100 mls/hr IV . Q10H [facility] Rx#:[id number] Oral 240 Blood Product 0 620 Rc As-1 Unit 0 310 [id number] Rc As-1 Unit 310 [id number] Output: Urine 350 Other: Voiding Method Bedside Commode Urinal # Voids 2 # Bowel Movements 0 Weight 113.398 kg 113.398 kg - Constitutional General appearance: cooperative, no acute distress - EENT Eyes: anicteric sclerae, EOMI, PERRLA - Neck Neck: normal ROM - Respiratory Respiratory: bilateral: CTA, negative: diminished, dullness, rales - Cardiovascular Rhythm: regular Heart sounds: normal: S1, S2 Abnormal Heart Sounds: no systolic murmur, no diastolic murmur, no rub, no S3 Gallop, no S4 Gallop, no click, no other - Gastrointestinal General gastrointestinal: normal bowel sounds, soft - Integumentary Integumentary: decreased turgor, normal - Neurologic Neurologic: CNII-XII intact - Musculoskeletal Musculoskeletal: generalized weakness, strength equal bilaterally - Psychiatric Psychiatric: A&O x's 3, appropriate affect, intact judgment & insight Results CBC & Chem 7: 11/20/21 06:14 11/20/21 11:44 Labs: Abnormal Lab Results - Last 24 Hours (Table) 11/19/21 11/19/21 11/19/21 Range/Units 18:57 18:57 18:57 WBC 3.0 L (3.8-10.6) k/uL RBC 1.37 L (4.30-5.90) m/uL Hgb 4.6 L* (13.0-17.5) gm/dL Hct 13.4 L* (39.0-53.0) % RDW 16.0 H (11.5-15.5) % Plt Count 51 L (150-450) k/uL Blast Cells % 1 H* % Lymphocytes # (Manual) 0.18 L (1.0-4.8) k/uL Metamyelocytes # (Man) 0.12 H (0) k/uL Myelocytes # (Manual) 0.03 H (0) k/uL Promyelocytes # (Man) (0) k/uL Blast Cells # (Man) 0.03 H (0) k/uL Nucleated RBCs (0-0) /100 WBC PT 12.4 H (9.0-12.0) sec INR 1.2 H (<1.2) D-Dimer 0.69 H (<0.60) mg/L FEU Sodium 134 L (137-145) mmol/L Potassium (3.5-5.5) mmol/L BUN 27 H (9-20) mg/dL Creatinine 1.71 H (0.66-1.25) mg/dL Est GFR (CKD-EPI)AfAm (60.0-200.0) Est GFR (CKD-EPI)NonAf (60.0-200.0) Glucose 126 H (74-99) mg/dL Calcium 7.9 L (8.4-10.2) mg/dL Total Bilirubin 1.5 H (0.2-1.3) mg/dL Total Protein 4.6 L (6.3-8.2) g/dL Albumin 2.7 L (3.5-5.0) g/dL Globulin (1.6-3.3) g/dL Crossmatch 11/19/21 11/20/21 11/20/21 Range/Units 20:53 02:20 06:14 WBC 3.1 L 3.1 L (3.8-10.6) k/uL RBC 2.02 L 2.04 L (4.30-5.90) m/uL Hgb 6.7 L* D 6.8 L* (13.0-17.5) gm/dL Hct 19.3 L* 19.7 L* (39.0-53.0) % RDW 15.6 H 15.6 H (11.5-15.5) % Plt Count 46 L 46 L (150-450) k/uL Blast Cells % % Lymphocytes # (Manual) 0.16 L 0.12 L (1.0-4.8) k/uL Metamyelocytes # (Man) 0.06 H 0.12 H (0) k/uL Myelocytes # (Manual) 0.16 H (0) k/uL Promyelocytes # (Man) 0.09 H 0.03 H (0) k/uL Blast Cells # (Man) (0) k/uL Nucleated RBCs 5 H 1 H (0-0) /100 WBC PT (9.0-12.0) sec INR (<1.2) D-Dimer (<0.60) mg/L FEU Sodium (137-145) mmol/L Potassium (3.5-5.5) mmol/L BUN (9-20) mg/dL Creatinine (0.66-1.25) mg/dL Est GFR (CKD-EPI)AfAm (60.0-200.0) Est GFR (CKD-EPI)NonAf (60.0-200.0) Glucose (74-99) mg/dL Calcium (8.4-10.2) mg/dL Total Bilirubin (0.2-1.3) mg/dL Total Protein (6.3-8.2) g/dL Albumin (3.5-5.0) g/dL Globulin (1.6-3.3) g/dL Crossmatch See Detail 11/20/21 Range/Units 06:14 WBC (3.8-10.6) k/uL RBC (4.30-5.90) m/uL Hgb (13.0-17.5) gm/dL Hct (39.0-53.0) % RDW (11.5-15.5) % Plt Count (150-450) k/uL Blast Cells % % Lymphocytes # (Manual) (1.0-4.8) k/uL Metamyelocytes # (Man) (0) k/uL Myelocytes # (Manual) (0) k/uL Promyelocytes # (Man) (0) k/uL Blast Cells # (Man) (0) k/uL Nucleated RBCs (0-0) /100 WBC PT (9.0-12.0) sec INR (<1.2) D-Dimer (<0.60) mg/L FEU Sodium (137-145) mmol/L Potassium 3.4 L (3.5-5.5) mmol/L BUN (9-20) mg/dL Creatinine 1.6 H (0.66-1.25) mg/dL Est GFR (CKD-EPI)AfAm 46.5 L (60.0-200.0) Est GFR (CKD-EPI)NonAf 40.1 L (60.0-200.0) Glucose (74-99) mg/dL Calcium 7.5 L (8.4-10.2) mg/dL Total Bilirubin (0.2-1.3) mg/dL Total Protein 4.2 L (6.3-8.2) g/dL Albumin 3.0 L (3.5-5.0) g/dL Globulin 1.2 L (1.6-3.3) g/dL Crossmatch Thrombosis Risk Factor Assmnt - Choose All That Apply Any of the Below Risk Factors Present?: Yes Each Factor Represents 1 point: Obesity (BMI >25) Each Risk Factor Represents 3 Points: Age 75 years or older Other congenital or acquired thrombophilia - If yes, enter type in comment: No Thrombosis Risk Factor Assessment Total Risk Factor Score: 4 Thrombosis Risk Factor Assessment Level: Moderate Risk Assessment and Plan Plan: 1. Severe pancytopenia, with symptomatic anemia, hemoglobin on admissionwas 4.6quite 2 units of packed red blood cell, consult with oncology, for chemotherapy related and cytopenia, we'll needcolony stimulating factors last erythropoiesis stimulating agents,check for haptoglobin, iron panel, currently Hemoccult negative regimen includes high-doseprednisone, unknown regimenbut given at 100 mg 2. Dehydration, with acute kidney injury, secondary to ATN, related to diminished oral intake, fluids for hydration, monitor his serial creatinine 3. B-cell lymphoma with original biopsy at left testicle with original diagnosis in August 2021follows by oncology, on chemotherapy. 4. History of melanoma unknown activity 5. History of prostate cancer unknown activity 6. Hypertension, on Inderal 60 mg daily, hold Hydrodiuril secondary to dehydrationhold off losartan 7. Hyperuricemia, on allopurinol GI prophylaxis DVT prophylaxis with Lovenoxand IV Protonix
[2021-11-20] MEDS: ENOXAPARIN 40 MG/0.4 ML SYRINGE SQ SCH (15:51)
--- NOTE | 2021-11-20 16:53 | P.CONS ---
History of Present Illness - Reason for Consult Consult date: 11/20/21 CLL Requesting physician: Roman Green - History of Present Illness Skip is a pleasant 81 year old male known to us for treatment of his known CLL. His recent PET showed good response and he is status post cycle 4 of RCHOP with neulasta 11/10/21. He presents to emergency with progressive weakness and dehydration. His PET in October with COmplete response , however side effects resulted in holding chemo one week and decreasing adriamycin doasage. To note he also receives Intrathecal Methotrexate. His baseline creastinine is around 0.8, today 1.7. His hemoglobin 6.8 and PRBC are ordered. He was seen today during rounds and patient was unable to urinate. He is pale, alert but a little "off" today. Review of Systems All systems: negative Constitutional: Reports as per HPI Past Medical History Past Medical History: Cancer, Hypertension, Prostate Disorder Additional Past Medical History / Comment(s): Diffuse large B cell lymphoma, testicular, prostate, melanoma, currently getting chemo for Lymphoma, last 11/07/21, next scheduled 11/29/21 History of Any Multi-Drug Resistant Organisms: None Reported Past Surgical History: Prostate Surgery Additional Past Surgical History / Comment(s): for prostate cancer , some fingers reattached, moles removed for cancer, lumbar puncture and Intrathecal Chemo Past Anesthesia/Blood Transfusion Reactions: No Reported Reaction Past Psychological History: No Psychological Hx Reported Smoking Status: Former smoker Past Alcohol Use History: Daily, Rare Past Drug Use History: None Reported - Past Family History Father History Unknown: Yes Family Medical History: Cancer Additional Family Medical History / Comment(s): prostate Medications and Allergies Home Medications Medication Instructions Recorded Confirmed Type Aspirin [Adult Low Dose Aspirin EC] 81 mg PO DAILY 12/27/18 11/19/21 History Potassium Chloride [Potassium 10 meq PO TID 12/27/18 11/19/21 History Chloride ER] allopurinoL [Zyloprim] 300 mg PO Q48H 12/27/18 11/19/21 History Docusate [Colace] 100 mg PO DAILY PRN 11/19/21 11/19/21 History Losartan Potassium 100 mg PO DAILY 11/19/21 11/19/21 History Niacin 500 mg PO DAILY 11/19/21 11/19/21 History Nystatin 100,000 Unit/ml Susp 4 ml PO QID PRN 11/19/21 11/19/21 History [Mycostatin Oral Susp] Propranolol HCl [Inderal] 60 mg PO DAILY 11/19/21 11/19/21 History Psyllium Husk [Metamucil] 0.4 gm PO DAILY 11/19/21 11/19/21 History hydroCHLOROthiazide [Hydrodiuril] 25 mg PO DAILY 11/19/21 11/19/21 History ondansetron HCL [Zofran] 8 mg PO Q6H PRN 11/19/21 11/19/21 History predniSONE 100 mg PO DIRECTED 11/19/21 11/19/21 History Allergies Allergy/AdvReac Type Severity Reaction Status Date / Time No Known Allergies Allergy Verified 11/19/21 21:04 Physical Exam Vitals: Vital Signs Temp Pulse Pulse Resp BP BP Pulse Ox 11/20/21 05:05 98.9 F 66 20 118/61 100 11/20/21 05:00 18 11/20/21 04:15 97.9 F 61 18 135/64 99 11/20/21 03:00 98.3 F 62 22 126/60 97 11/20/21 01:58 98.5 F 69 24 134/68 96 11/20/21 01:57 98.4 F 69 24 134/68 97 11/20/21 00:46 98.5 F 69 22 126/65 96 11/20/21 00:29 98.9 F 67 22 125/56 97 11/20/21 00:25 98.9 F 66 22 125/56 97 11/20/21 00:19 98.7 F 66 22 135/64 97 11/20/21 00:16 98.7 F 66 22 136/68 97 11/20/21 00:06 98.8 F 65 22 136/68 97 11/19/21 23:59 98.8 F 63 22 137/66 97 11/19/21 23:58 98.8 F 70 22 139/67 98 11/19/21 23:06 98.8 F 68 24 130/74 98 11/19/21 23:00 68 22 130/59 97 11/19/21 22:36 98.7 F 67 22 122/51 11/19/21 22:20 98.3 F 66 22 118/65 11/19/21 22:00 98.5 F 66 22 118/55 97 11/19/21 21:00 67 20 117/82 97 11/19/21 20:00 87 22 131/60 97 11/19/21 19:51 72 24 131/75 100 11/19/21 18:27 98.3 F 72 18 131/63 92 L Intake and Output 11/19/21 11/20/21 11/20/21 22:59 06:59 14:59 Intake Total 0 1060 Output Total 350 Balance 0 710 Intake: Intake, IV Titration 200 Amount Sodium Chloride 0.9% 1, 200 000 ml @ 100 mls/hr IV . Q10H [facility] Rx#:[id number] Oral 240 Blood Product 0 620 Rc As-1 Unit 0 310 [id number] Rc As-1 Unit 310 [id number] Output: Urine 350 Other: Voiding Method Bedside Commode Urinal # Voids 2 # Bowel Movements 0 Weight 113.398 kg 113.398 kg Pale Jaundice Poor historian - Constitutional General appearance: cooperative, no acute distress - EENT ENT: NA/AT - Neck Neck: normal ROM - Respiratory Respiratory: bilateral: diminished - Cardiovascular Rhythm: regularly irregular - Gastrointestinal General gastrointestinal: soft - Integumentary Integumentary: pale - Neurologic Neurologic: CNII-XII intact - Musculoskeletal Musculoskeletal: generalized weakness - Psychiatric Psychiatric: A&O x's 3, appropriate affect Results CBC & Chem 7: 11/20/21 06:14 11/20/21 11:44 Labs: Abnormal Lab Results - Last 24 Hours (Table) 11/19/21 11/19/21 11/19/21 Range/Units 18:57 18:57 18:57 WBC 3.0 L (3.8-10.6) k/uL RBC 1.37 L (4.30-5.90) m/uL Hgb 4.6 L* (13.0-17.5) gm/dL Hct 13.4 L* (39.0-53.0) % RDW 16.0 H (11.5-15.5) % Plt Count 51 L (150-450) k/uL Blast Cells % 1 H* % Lymphocytes # (Manual) 0.18 L (1.0-4.8) k/uL Metamyelocytes # (Man) 0.12 H (0) k/uL Myelocytes # (Manual) 0.03 H (0) k/uL Promyelocytes # (Man) (0) k/uL Blast Cells # (Man) 0.03 H (0) k/uL Nucleated RBCs (0-0) /100 WBC PT 12.4 H (9.0-12.0) sec INR 1.2 H (<1.2) D-Dimer 0.69 H (<0.60) mg/L FEU Sodium 134 L (137-145) mmol/L Potassium (3.5-5.5) mmol/L BUN 27 H (9-20) mg/dL Creatinine 1.71 H (0.66-1.25) mg/dL Est GFR (CKD-EPI)AfAm (60.0-200.0) Est GFR (CKD-EPI)NonAf (60.0-200.0) Glucose 126 H (74-99) mg/dL Calcium 7.9 L (8.4-10.2) mg/dL Total Bilirubin 1.5 H (0.2-1.3) mg/dL Total Protein 4.6 L (6.3-8.2) g/dL Albumin 2.7 L (3.5-5.0) g/dL Globulin (1.6-3.3) g/dL Crossmatch 11/19/21 11/20/21 11/20/21 Range/Units 20:53 02:20 06:14 WBC 3.1 L 3.1 L (3.8-10.6) k/uL RBC 2.02 L 2.04 L (4.30-5.90) m/uL Hgb 6.7 L* D 6.8 L* (13.0-17.5) gm/dL Hct 19.3 L* 19.7 L* (39.0-53.0) % RDW 15.6 H 15.6 H (11.5-15.5) % Plt Count 46 L 46 L (150-450) k/uL Blast Cells % % Lymphocytes # (Manual) 0.16 L 0.12 L (1.0-4.8) k/uL Metamyelocytes # (Man) 0.06 H 0.12 H (0) k/uL Myelocytes # (Manual) 0.16 H (0) k/uL Promyelocytes # (Man) 0.09 H 0.03 H (0) k/uL Blast Cells # (Man) (0) k/uL Nucleated RBCs 5 H 1 H (0-0) /100 WBC PT (9.0-12.0) sec INR (<1.2) D-Dimer (<0.60) mg/L FEU Sodium (137-145) mmol/L Potassium (3.5-5.5) mmol/L BUN (9-20) mg/dL Creatinine (0.66-1.25) mg/dL Est GFR (CKD-EPI)AfAm (60.0-200.0) Est GFR (CKD-EPI)NonAf (60.0-200.0) Glucose (74-99) mg/dL Calcium (8.4-10.2) mg/dL Total Bilirubin (0.2-1.3) mg/dL Total Protein (6.3-8.2) g/dL Albumin (3.5-5.0) g/dL Globulin (1.6-3.3) g/dL Crossmatch See Detail 11/20/21 Range/Units 06:14 WBC (3.8-10.6) k/uL RBC (4.30-5.90) m/uL Hgb (13.0-17.5) gm/dL Hct (39.0-53.0) % RDW (11.5-15.5) % Plt Count (150-450) k/uL Blast Cells % % Lymphocytes # (Manual) (1.0-4.8) k/uL Metamyelocytes # (Man) (0) k/uL Myelocytes # (Manual) (0) k/uL Promyelocytes # (Man) (0) k/uL Blast Cells # (Man) (0) k/uL Nucleated RBCs (0-0) /100 WBC PT (9.0-12.0) sec INR (<1.2) D-Dimer (<0.60) mg/L FEU Sodium (137-145) mmol/L Potassium 3.4 L (3.5-5.5) mmol/L BUN (9-20) mg/dL Creatinine 1.6 H (0.66-1.25) mg/dL Est GFR (CKD-EPI)AfAm 46.5 L (60.0-200.0) Est GFR (CKD-EPI)NonAf 40.1 L (60.0-200.0) Glucose (74-99) mg/dL Calcium 7.5 L (8.4-10.2) mg/dL Total Bilirubin (0.2-1.3) mg/dL Total Protein 4.2 L (6.3-8.2) g/dL Albumin 3.0 L (3.5-5.0) g/dL Globulin 1.2 L (1.6-3.3) g/dL Crossmatch Chest x-ray: report reviewed Assessment and Plan (1) CLL (chronic lymphocytic leukemia) Narrative/Plan: Status Post Cycle 4 of R-CHOP with Neulasta on 11/10/21 status Post MTX IT as well Last PET without evidence of active disease Current Visit: Yes Status: Acute Code(s): C91.10 - CHRONIC LYMPHOCYTIC LEUK OF B-CELL TYPE NOT ACHIEVE REMIS SNOMED Code(s): 87750902 (2) Urinary hesitancy Narrative/Plan: - Urine Culture Ordered - Post Void residual Current Visit: Yes Status: Acute Code(s): R39.11 - HESITANCY OF MICTURITION SNOMED Code(s): 2444263 (3) Anemia Narrative/Plan: Transfuse less than 7 (6.5 per hospital at this time due to shortage) Current Visit: Yes Status: Acute Code(s): D64.9 - ANEMIA, UNSPECIFIED SNOMED Code(s): 933581674 (4) Generalized weakness Narrative/Plan: Allen Cultures ordered Blood cultures and Urinalysis and culture Current Visit: Yes Status: Acute Code(s): R53.1 - WEAKNESS SNOMED Code(s): 83863845 (5) Leukopenia Current Visit: Yes Status: Acute Code(s): D72.819 - DECREASED WHITE BLOOD CELL COUNT, UNSPECIFIED SNOMED Code(s): 11544465 (6) Thrombocytopenia Narrative/Plan: Platlets are 46K, hold AC therapy at this time and monitor for bleeding. Current Visit: Yes Status: Acute Code(s): D69.6 - THROMBOCYTOPENIA, UNSPECIFIED SNOMED Code(s): 823535887 Plan: Await cultures Daily CBC, CMP Check TLS labs IV Hydration
--- NOTE | 2021-11-20 17:37 | CONS ---
CONSULTATION REASON FOR CONSULT: Renal failure. HISTORY OF PRESENT ILLNESS: The patient is an 81-year-old male who was admitted to the hospital with complaints of increased weakness. He states that he had not been eating or drinking much for the last few days. He denied any significant diarrhea, nausea or vomiting. Patient's creatinine was 1.7 mg/dL. He is currently maintained on IV fluids. Creatinine is down to 1.38. On admission, patient is noted to have a hemoglobin of 4.6. He has been transfused packed RBCs and hemoglobin is up to 6.8. The patient has an underlying history of diffuse large B-cell lymphoma and follows with Hematology. I believe he has been on chemotherapy. He also has history of melanoma and prostatic cancer. PAST SURGICAL HISTORY: Prostate surgery, skin cancer removal, intrathecal chemo. SOCIAL HISTORY: Patient is a former smoker. No history of drug abuse or alcohol abuse. MEDICATIONS: Medications prior to admission included vitamin C, aspirin, hydrochlorothiazide, losartan, omega-3, potassium, Inderal Zyloprim. ALLERGIES: None. REVIEW OF SYSTEMS: As per HPI. Other systems negative. EXAMINATION: Patient is comfortable, awake, not in any acute distress. Alert, oriented x3. Blood pressure is 130/59, heart rate 62 per minute, he is afebrile. Examination of the heart S1, S2. Examination of the lungs, bilateral breath sounds are heard. Abdomen is soft, nontender. Examination of lower extremities shows no significant edema. EXPLORATION MANAGER exam grossly intact. LAB: Show sodium 135, potassium 3.5, BUN 21, creatinine 1.3, hemoglobin 6.8, white cell count 3.1. UA is completely benign. Occult blood in the stool is negative. ASSESSMENT: 1. Acute kidney injury secondary to severe anemia, currently improved status post IV fluids. 2. History of underlying malignancy with B-cell lymphoma, maintained on chemotherapy. 3. Pancytopenia secondary to chemo versus underlying malignancy. 4. Hypokalemia secondary to decreased oral intake, currently status post replacement. 5. CKD, NKF stage 3. Previous creatinine not available, possibly around 1.3. UA is completely benign. PLAN: Check ultrasound of the kidneys. Continue with IV fluids. Repeat labs in a.m. Thank you for this consultation. Will continue to follow the patient with you during his hospitalization. Consult Hematology as well. MMODL / IJN: [id number] /
[2021-11-20] MEDS: PANTOPRAZOLE 40 MG/10 ML VIAL IVP SCH (17:44)
--- NOTE | 2021-11-20 21:41 | US ---
EXAMINATION TYPE: US kidneys/renal and bladder DATE OF EXAM: 11/20/2021 COMPARISON: NONE CLINICAL HISTORY: Renal failure EXAM MEASUREMENTS: Right Kidney: 11.1 x 4.5 x 6.2 cm Left Kidney: 12.3 x 4.8 x 5.8 cm Right Kidney: No hydronephrosis or masses seen Left Kidney: No hydronephrosis or masses seen however assessment is limited due to overlying bowel ga s. Bladder: not distended There is no evidence for hydronephrosis at this point in time. No nephrolithiasis is seen. No idalia s are identified. The urinary bladder is anechoic. Bilateral ureteral jets are seen. IMPRESSION: Limited assessment of the left kidney due to overlying bowel gas. No hydronephrosis of either kidney.
[2021-11-21] MEDS: SODIUM CHLORIDE 0.9% 1,000 ML IV SCH ×2 (03:46→08:55)
[2021-11-21 06:54] LABS: Anisocytosis Slight; MCH 32.9 pg (25.0-35.0); Mean Platelet Volume 9.5; Poikilocytosis Slight; RDW 16.4 % (11.5-15.5)
[2021-11-21 07:15] LABS: HCT 19.4 % (39.0-53.0); HGB 6.6 gm/dL (13.0-17.5); Platelet Count 57 k/uL (150-450)
--- NOTE | 2021-11-21 08:10 | P.PN ---
Subjective Patient is seen in follow-up for acute kidney injury. Unknown baseline renal function. Creatinine was 1.71 on admission and was down to 1.38 yesterday. Receiving IV fluids. Oral intake fair. No vomiting or diarrhea. No active bleeding. Hemodynamically stable. Vital signs are stable. General: The patient appeared well nourished and normally developed. HEENT: Head exam is unremarkable. LUNGS: Breath sounds decreased. HEART: Rate and Rhythm are regular. ABDOMEN: Soft, no distention. EXTREMITITES: No edema. Objective - Vital Signs Vital signs: Vital Signs Temp 98.5 F 11/21/21 04:58 Pulse 69 11/21/21 04:58 Resp 18 11/21/21 04:58 BP 126/63 11/21/21 04:58 Pulse Ox 95 11/21/21 04:58 Intake & Output 11/20/21 11/21/21 11/21/21 18:59 06:59 18:59 Intake Total 1200 450 Output Total 550 Balance 1200 -100 Intake: Intake, IV Titration 1200 Amount Sodium Chloride 0.9% 1, 1200 000 ml @ 100 mls/hr IV . Q10H [facility] Rx#:[id number] Oral 450 Output: Urine 550 Other: Voiding Method Bedside Commode Bedside Commode Urinal Urinal # Voids 3 - Labs CBC & Chem 7: 11/21/21 06:22 11/20/21 11:44 Labs: Abnormal Lab Results - Last 24 Hours (Table) 11/20/21 11/20/21 11/20/21 Range/Units 06:14 06:14 11:44 WBC (3.8-10.6) k/uL RBC (4.30-5.90) m/uL Hgb (13.0-17.5) gm/dL Hct (39.0-53.0) % RDW (11.5-15.5) % Plt Count (150-450) k/uL Lymphocytes # (Manual) 0.12 L (1.0-4.8) k/uL Metamyelocytes # (Man) 0.12 H (0) k/uL Myelocytes # (Manual) 0.16 H (0) k/uL Promyelocytes # (Man) 0.03 H (0) k/uL Nucleated RBCs 1 H (0-0) /100 WBC Haptoglobin (31.2-198.0) mg/dL Sodium 135 L (137-145) mmol/L Potassium 3.4 L (3.5-5.5) mmol/L Chloride 110 H (98-107) mmol/L BUN 21 H (9-20) mg/dL Creatinine 1.6 H 1.38 H (0.6-1.5) mg/dL Est GFR (CKD-EPI)AfAm 46.5 L (60.0-200.0) Est GFR (CKD-EPI)NonAf 40.1 L (60.0-200.0) Glucose 112 H (74-99) mg/dL Calcium 7.5 L 7.5 L (8.7-10.3) mg/dL Total Bilirubin 1.4 H (0.2-1.3) mg/dL Lactate Dehydrogenase 745 H (313-618) U/L Total Protein 4.2 L 4.4 L (6.2-8.2) g/dL Albumin 3.0 L 2.5 L (3.8-4.9) g/dL Globulin 1.2 L (1.6-3.3) g/dL IgG (700.0-1600.0) mg/dL 11/20/21 11/20/21 11/21/21 Range/Units 11:44 11:44 06:22 WBC 3.3 L (3.8-10.6) k/uL RBC 2.00 L (4.30-5.90) m/uL Hgb 6.6 L* (13.0-17.5) gm/dL Hct 19.4 L* (39.0-53.0) % RDW 16.4 H (11.5-15.5) % Plt Count 57 L (150-450) k/uL Lymphocytes # (Manual) (1.0-4.8) k/uL Metamyelocytes # (Man) (0) k/uL Myelocytes # (Manual) (0) k/uL Promyelocytes # (Man) (0) k/uL Nucleated RBCs (0-0) /100 WBC Haptoglobin 214.0 H (31.2-198.0) mg/dL Sodium (137-145) mmol/L Potassium (3.5-5.5) mmol/L Chloride (98-107) mmol/L BUN (9-20) mg/dL Creatinine (0.6-1.5) mg/dL Est GFR (CKD-EPI)AfAm (60.0-200.0) Est GFR (CKD-EPI)NonAf (60.0-200.0) Glucose (74-99) mg/dL Calcium (8.7-10.3) mg/dL Total Bilirubin (0.2-1.3) mg/dL Lactate Dehydrogenase (313-618) U/L Total Protein (6.2-8.2) g/dL Albumin (3.8-4.9) g/dL Globulin (1.6-3.3) g/dL IgG 256.0 L (700.0-1600.0) mg/dL Assessment and Plan Plan: Assessment: 1. Acute kidney injury mostly prerenal secondary to anemia. Creatinine was 1.71 on admission and was down to 1.38 yesterday. Unknown baseline renal function. UA benign. No hydronephrosis noted on kidney ultrasound. 2. CLL. Oncology following. 3. Acute blood loss anemia/pancytopenia secondary to chemotherapy versus malignancy. Has received blood transfusions. Hematology following. Hemoglobin 6.6 today. 4. Hypokalemia from poor intake. Replaced. Plan: Decrease rate of IV fluids to 70 mL an hour. Encouraged oral intake. Avoid nephrotoxins. Blood transfusion per hematology. Continue to monitor renal function and urine output.
[2021-11-21 08:48] LABS: Band Neutrophils % 6 %; Lymphocytes # (M) 0.06 k/uL (1.0-4.8); Metamyelocytes # (M) 0.13 k/uL (0); Metamyelocytes % 4 %; Monocytes # (M) 0.13 k/uL (0-1.0); Myelocytes # (M) 0.22 k/uL (0); Myelocytes % 7 %; Neutrophils % (M) 78 %; Nucleated Red Blood Cells 2 /100 WBC (0-0); Promyelocytes # (M) 0.03 k/uL (0); Promyelocytes % 1 %; Total Cells Counted 200; WBC 3.2 k/uL (3.8-10.6)
[2021-11-21] MEDS: allopurinoL 300 MG TAB PO SCH (08:57)
[2021-11-21] MEDS: PROPRANOLOL 20 MG TAB PO SCH (08:57)
[2021-11-21] MEDS: ENOXAPARIN 40 MG/0.4 ML SYRINGE SQ SCH (08:57)
[2021-11-21] MEDS: ASPIRIN 81 MG PO SCH (08:57)
[2021-11-21] MEDS: PANTOPRAZOLE 40 MG/10 ML VIAL IVP SCH (08:57)
[2021-11-21 09:26] LABS: % Iron Saturation 38.65 (15.00-50.00); Iron 67 ug/dL (65-175); Total Iron Binding Capacity 174 ug/dL (228-460)
--- NOTE | 2021-11-21 10:44 | P.PN ---
Subjective Progress Note Date: 11/21/21 Principal diagnosis: pancytopenia 2/2 Tx lymphoma, weakness, falls In f/u today pt denies fever, nausea, he is tolerating oral intake, moderate dry mouth, is SOB with exertion, denies chest pain, weakness and SOB are keeping him from being very active, denies abd pain, acute changes in bowel or bladder, no dysuria, bleeding, swelling in the legs or pain. Objective - Vital Signs Vital signs: Vital Signs Temp 98.5 F 11/21/21 04:58 Pulse 69 11/21/21 04:58 Resp 18 11/21/21 04:58 BP 126/63 11/21/21 04:58 Pulse Ox 95 11/21/21 04:58 Intake & Output 11/20/21 11/21/21 11/21/21 18:59 06:59 18:59 Intake Total 1200 450 Output Total 550 Balance 1200 -100 Intake: Intake, IV Titration 1200 Amount Sodium Chloride 0.9% 1, 1200 000 ml @ 100 mls/hr IV . Q10H [facility] Rx#:[id number] Oral 450 Output: Urine 550 Other: Voiding Method Bedside Commode Bedside Commode Urinal Urinal # Voids 3 - Constitutional General appearance: Present: average body habitus, cooperative - EENT EENT Comment(s): dry mucus membranes Eyes: Present: anicteric sclerae, EOMI ENT: Present: hearing grossly normal - Neck Neck: Absent: lymphadenopathy - Respiratory Respiratory: bilateral: CTA - Cardiovascular Rhythm: regular Heart sounds: normal: S1, S2 Abnormal Heart Sounds: Absent: systolic murmur, diastolic murmur, rub, S3 Gallop, S4 Gallop, click, other - Peripheral edema leg Peripheral Edema: bilateral: None - Gastrointestinal General gastrointestinal: Present: normal bowel sounds, soft. Absent: absent bowel sounds, decreased bowel sounds, distended, hepatomegaly, hyperactive bowel sounds, organomegaly, rigid, scaphoid, splenomegaly, tenderness, umbilical hernia, ventral hernia - Integumentary Integumentary: Present: pale - Neurologic Neurologic: Present: CNII-XII intact - Musculoskeletal Musculoskeletal: Present: generalized weakness - Psychiatric Psychiatric: Present: A&O x's 3, appropriate affect, intact judgment & insight - Labs CBC & Chem 7: 11/21/21 06:22 11/20/21 11:44 Labs: Abnormal Lab Results - Last 24 Hours (Table) 11/20/21 11/20/21 11/20/21 Range/Units 06:14 06:14 11:44 WBC (3.8-10.6) k/uL RBC (4.30-5.90) m/uL Hgb (13.0-17.5) gm/dL Hct (39.0-53.0) % RDW (11.5-15.5) % Plt Count (150-450) k/uL Lymphocytes # (Manual) 0.12 L (1.0-4.8) k/uL Metamyelocytes # (Man) 0.12 H (0) k/uL Myelocytes # (Manual) 0.16 H (0) k/uL Promyelocytes # (Man) 0.03 H (0) k/uL Nucleated RBCs 1 H (0-0) /100 WBC Haptoglobin (31.2-198.0) mg/dL Sodium 135 L (137-145) mmol/L Potassium 3.4 L (3.5-5.5) mmol/L Chloride 110 H (98-107) mmol/L BUN 21 H (9-20) mg/dL Creatinine 1.6 H 1.38 H (0.6-1.5) mg/dL Est GFR (CKD-EPI)AfAm 46.5 L (60.0-200.0) Est GFR (CKD-EPI)NonAf 40.1 L (60.0-200.0) Glucose 112 H (74-99) mg/dL Calcium 7.5 L 7.5 L (8.7-10.3) mg/dL Total Bilirubin 1.4 H (0.2-1.3) mg/dL Lactate Dehydrogenase 745 H (313-618) U/L Total Protein 4.2 L 4.4 L (6.2-8.2) g/dL Albumin 3.0 L 2.5 L (3.8-4.9) g/dL Globulin 1.2 L (1.6-3.3) g/dL IgG (700.0-1600.0) mg/dL 11/20/21 11/20/21 11/21/21 Range/Units 11:44 11:44 06:22 WBC 3.3 L (3.8-10.6) k/uL RBC 2.00 L (4.30-5.90) m/uL Hgb 6.6 L* (13.0-17.5) gm/dL Hct 19.4 L* (39.0-53.0) % RDW 16.4 H (11.5-15.5) % Plt Count 57 L (150-450) k/uL Lymphocytes # (Manual) (1.0-4.8) k/uL Metamyelocytes # (Man) (0) k/uL Myelocytes # (Manual) (0) k/uL Promyelocytes # (Man) (0) k/uL Nucleated RBCs (0-0) /100 WBC Haptoglobin 214.0 H (31.2-198.0) mg/dL Sodium (137-145) mmol/L Potassium (3.5-5.5) mmol/L Chloride (98-107) mmol/L BUN (9-20) mg/dL Creatinine (0.6-1.5) mg/dL Est GFR (CKD-EPI)AfAm (60.0-200.0) Est GFR (CKD-EPI)NonAf (60.0-200.0) Glucose (74-99) mg/dL Calcium (8.7-10.3) mg/dL Total Bilirubin (0.2-1.3) mg/dL Lactate Dehydrogenase (313-618) U/L Total Protein (6.2-8.2) g/dL Albumin (3.8-4.9) g/dL Globulin (1.6-3.3) g/dL IgG 256.0 L (700.0-1600.0) mg/dL - Imaging and Cardiology US - abdomen: report reviewed Assessment and Plan (1) Hypogammaglobulinemia Narrative/Plan: IgG 256. D/W Pharmacist. IVIG ordered Current Visit: Yes Status: Acute Priority: High Code(s): D80.1 - NONFAMILIAL HYPOGAMMAGLOBULINEMIA SNOMED Code(s): 530515834 (2) Pancytopenia due to antineoplastic chemotherapy Narrative/Plan: WBC adequate at this time. No fever or s/s infection at this time Hgb 6.6. Due to national blood shortage transfusion threshold reduced to 6.5. Pt is symptomatic, have ordered 1 unit PRBCs Platelets 57,000, no transfusion needed. Current Visit: Yes Status: Acute Priority: High Code(s): D61.810 - ANTINEOPLASTIC CHEMOTHERAPY INDUCED PANCYTOPENIA; T45.1X5A - ADVERSE EFFECT OF ANTINEOPLASTIC AND IMMUNOSUP DRUGS, INIT SNOMED Code(s): 153890965942085 (3) Generalized weakness Narrative/Plan: 2/2 low counts, chemo. PT/OT ordered. Discussed case with Physical Therapist. Current Visit: Yes Status: Acute Priority: High Code(s): R53.1 - WEAKNESS SNOMED Code(s): 79431925 (4) Renal insufficiency Narrative/Plan: 2/2 dehydration, no hydronephrosis on US. His BUN/Cr slightly improved with hydration. Cont to hydrate, cont to monitor labs Current Visit: Yes Status: Acute Priority: High Code(s): N28.9 - DISORDER OF KIDNEY AND URETER, UNSPECIFIED SNOMED Code(s): 387945029 (5) Diffuse large B cell lymphoma Narrative/Plan: Pt has had 4 IT MTX prophylaxis, he is s/p / R-CHOP with neulasta (11/10), had dose reduction cycle 5. He had imaging last month that showed excellent response to treatment. Supportive care for SE from treatment. Last cycle of treatment will be delayed until pt recovered. Current Visit: No Status: Chronic Priority: Medium Code(s): C83.30 - DIFFUSE LARGE B-CELL LYMPHOMA, UNSPECIFIED SITE SNOMED Code(s): 626961066 Plan: attests: I have seen and examined pt, performed H&P, developed impression and plan of care. Discussed with dictator. Agree with dictation, documented as a scribe.
[2021-11-21] MEDS ORDERED: IMMUNE GLOBULIN (GAMMAGARD) 20 GM in EMPTY BAG 1 BAG IV ONE (12:00)
[2021-11-21 13:27] VITALS: BMI 32.1
--- NOTE | 2021-11-21 15:42 | P.PN ---
Subjective Progress Note Date: 11/21/21 HISTORY OF PRESENT ILLNESS this is an 81-year-old pleasant gentleman, patient of Dr. Sesaylying histo ry of B-cell lymphoma, diagnosed to the testicle lesion, in August 2021, also history of melanoma, and prostate cancer, who now follows by [facility] physician, chemotherapy, for which he has 2 more treatments to go. He goes for chemotherapy, 3 times a week, last treatment, was 2 weeks ago. He felt weak for the past 2-3 days, with diminished appetite, not eating or drinking, he has lightheadedness and dizziness, and has fallen, for the past few days. He was last seen by Dr. Pride PCP, one year ago, however he is fully vaccinated against coronavirus including the booster shot in October. He denies having any fever or chills, headache, isolated motor deficits, in the upper and lower extremity, and no chest pain. Patient denies any syncope next Emergency roomEKG, shows normal sinus rhythm, right bundle branch block, ventricular rate 72, normal [place] interval, normal QRS, no change compared to December 2018, hemoglobin on entry was 4.6, WBC count of 3.0, platelet count of 51, patient received 2 units of packed red blood cell. INR 1.2,creatinine of 1.7, sodium of 134, potassium 3.5, BUN of 27 total bilirubin of 1.5, liver function tests otherwise normal, protein is low at 4.6, albumin 2.7, glucose of 126. Patient admitted for dehydration, acute kidney injury, and pancytopenia with severe anemia consult with oncology coronavirus negative Hemoccult negative. Urinalysis negative 11/21: Patient Has been seen by oncology and IVIG was ordered. He has been infused total of 3 units of packed RBCs. CBC 3.2, hemoglobin 6.6, platelet count 57. Haptoglobin 214. IgG 256. Blood cultures are showing no growth. Patient has been afebrile, heart rate 60, blood pressure 154/69, pulse ox 95% on room air. Patient is followed by nephrology and IV fluids decreased to 70 mL per hour, continue to encourage oral intake and avoid nephrotoxins. Renal ultrasound revealed limited assessment of the left kidney due to overlying bowel gas. No hydronephrosis of either kidney. REVIEW OF SYSTEMS Constitutional: No fever, no chills, no night sweats. No weight change. Reports weakness, Reports fatigue Reports lethargy. Reports daytime sleepiness. EENT: No headache. No blurred vision or double vision, no loss of vision. No loss of Hearing, no ringing in the ears, no dizziness. No nasal drainage or congestion. No epistaxis. No sore throat. Lungs: No shortness of breath, cough, no sputum production. No wheezing. Cardiovascular: No chest pain, no lower extremity edema. No palpitations. No paroxysmal nocturnal dyspnea. No orthopnea. No lightheadedness or dizziness. No syncopal episodes. Abdominal: No abdominal pain. No nausea, vomiting. No diarrhea. No constipation. No bloody or tarry stools. No loss of appetite. Genitourinary: No dysuria, increased frequency, urgency. No urinary retention. Musculoskeletal: No myalgias. Reports muscle weakness, no gait dysfunction, no frequent falls. No back pain. No neck pain. Integumentary: No wounds, no lesions. No rash or pruritus. No unusual bruising. No change in hair or nails. Neurologic: No aphasia. No facial droop. No change in mentation. No head injury. No headache. No paralysis. No paresthesia. Psychiatric: No depression. No anxiety. No mood swings. Endocrine: No abnormal blood sugars. Reports weight change. PHYSICAL EXAMINATION Gen: This is an 81-year-old male. His resting bed appears to be comfortable and in no acute distress.. HEENT: Head is atraumatic, normocephalic. Pupils equal, round. Sclerae is anicteric. NECK: Supple. No JVD. No lymphadenopathy. No thyromegaly. LUNGS: Clear to auscultation. No wheezes or rhonchi. No intercostal retractions. HEART: Regular rate and rhythm. No murmur. ABDOMEN: Soft. Bowel sounds are present. No masses. No tenderness. EXTREMITIES: Trace pedal edema. No calf tenderness. NEUROLOGICAL: Patient is awake, alert and oriented x3. Cranial nerves 2 through 12 are grossly intact. ASSESSMENT AND PLAN 1. Severe pancytopenia, with symptomatic anemia, hemoglobin on admissionwas 4.6 quite 2 units of packed red blood cell, consult with oncology, for chemotherapy related and cytopenia, we'll need colony stimulating factors last erythropoiesis stimulating agents,check for haptoglobin, iron panel, currently Hemoccult negative regimen includes high-doseprednisone, unknown regimenbut given at 100 mg. Oncology ordered IVIG 2. Dehydration, with acute kidney injury, secondary to ATN, related to diminished oral intake, fluids for hydration, monitor his serial creatinine 3. B-cell lymphoma with original biopsy at left testicle with original diagnosis in August 2021follows by oncology, on chemotherapy. 4. History of melanoma unknown activity 5. History of prostate cancer unknown activity 6. Hypertension, on Inderal 60 mg daily, hold Hydrodiuril secondary to dehydrationhold off losartan 7. Hyperuricemia, on allopurinol GI prophylaxis DVT prophylaxis with Lovenoxand IV Protonix COVID-19 testing negative. Patient has been hospitalized during a pandemic. DISCHARGE PLAN To be determined. Impression and plan of care have been directed as dictated by the signing physician. Radha Zarate nurse practitioner acting as scribe for signing physician. Objective - Vital Signs Vital signs: Vital Signs Temp 98.5 F 11/21/21 04:58 Pulse 69 11/21/21 04:58 Resp 18 11/21/21 04:58 BP 158/80 11/21/21 09:09 Pulse Ox 95 11/21/21 04:58 Intake & Output 11/20/21 11/21/21 11/21/21 18:59 06:59 18:59 Intake Total 1200 450 Output Total 550 Balance 1200 -100 Intake: Intake, IV Titration 1200 Amount Sodium Chloride 0.9% 1, 1200 000 ml @ 100 mls/hr IV . Q10H [facility] Rx#:[id number] Oral 450 Output: Urine 550 Other: Voiding Method Bedside Commode Bedside Commode Urinal Urinal Urinal # Voids 3 - Labs CBC & Chem 7: 11/21/21 06:22 11/20/21 11:44 Labs: Abnormal Lab Results - Last 24 Hours (Table) 11/19/21 11/20/21 11/20/21 Range/Units 20:53 11:44 11:44 WBC (3.8-10.6) k/uL RBC (4.30-5.90) m/uL Hgb (13.0-17.5) gm/dL Hct (39.0-53.0) % RDW (11.5-15.5) % Plt Count (150-450) k/uL Lymphocytes # (Manual) (1.0-4.8) k/uL Metamyelocytes # (Man) (0) k/uL Myelocytes # (Manual) (0) k/uL Promyelocytes # (Man) (0) k/uL Nucleated RBCs (0-0) /100 WBC Haptoglobin (31.2-198.0) mg/dL Sodium 135 L (137-145) mmol/L Chloride 110 H (98-107) mmol/L BUN 21 H (9-20) mg/dL Creatinine 1.38 H (0.66-1.25) mg/dL Glucose 112 H (74-99) mg/dL Calcium 7.5 L (8.4-10.2) mg/dL TIBC 174 L (228-460) ug/dL Transferrin 124.0 L (204.0-354.0) mg/dL Ferritin 1736.0 H (22.0-322.0) ng/mL Total Bilirubin 1.4 H (0.2-1.3) mg/dL Lactate Dehydrogenase 745 H (313-618) U/L Total Protein 4.4 L (6.3-8.2) g/dL Albumin 2.5 L (3.5-5.0) g/dL IgG 256.0 L (700.0-1600.0) mg/dL Crossmatch See Detail 11/20/21 11/21/21 Range/Units 11:44 06:22 WBC 3.2 L (3.8-10.6) k/uL RBC 2.00 L (4.30-5.90) m/uL Hgb 6.6 L* (13.0-17.5) gm/dL Hct 19.4 L* (39.0-53.0) % RDW 16.4 H (11.5-15.5) % Plt Count 57 L (150-450) k/uL Lymphocytes # (Manual) 0.06 L (1.0-4.8) k/uL Metamyelocytes # (Man) 0.13 H (0) k/uL Myelocytes # (Manual) 0.22 H (0) k/uL Promyelocytes # (Man) 0.03 H (0) k/uL Nucleated RBCs 2 H (0-0) /100 WBC Haptoglobin 214.0 H (31.2-198.0) mg/dL Sodium (137-145) mmol/L Chloride (98-107) mmol/L BUN (9-20) mg/dL Creatinine (0.66-1.25) mg/dL Glucose (74-99) mg/dL Calcium (8.4-10.2) mg/dL TIBC (228-460) ug/dL Transferrin (204.0-354.0) mg/dL Ferritin (22.0-322.0) ng/mL Total Bilirubin (0.2-1.3) mg/dL Lactate Dehydrogenase (313-618) U/L Total Protein (6.3-8.2) g/dL Albumin (3.5-5.0) g/dL IgG (700.0-1600.0) mg/dL Crossmatch
[2021-11-21] MEDS: IMMUNE GLOBULIN (GAMMAGARD) 30 GM in EMPTY BAG 1 BAG IV ONE ×2 (18:21→18:53)
[2021-11-21] MEDS: SALT AND SODA MOUTHWASH 1,000 ML PO SCH ×2 (18:24→20:47)
[2021-11-21] MEDS ORDERED: ACETAMINOPHEN TAB 325 MG TAB PO STA (18:36)
[2021-11-21] MEDS ORDERED: methylPREDNISolone SOD SUCCI 125 MG/2 ML VIAL IV STA (18:37)
[2021-11-21] MEDS ORDERED: diphenhydrAMINE 50 MG/ML 1 ML VIAL IVP STA (18:37)
[2021-11-22] MEDS: SALT AND SODA MOUTHWASH 1,000 ML PO SCH ×5 (00:18→21:13)
[2021-11-22] MEDS: SODIUM CHLORIDE 0.9% 1,000 ML IV SCH ×3 (06:21→21:13)
[2021-11-22 06:37] LABS: Anisocytosis Slight; Basophils % (A) 1 %; Eosinophils % (A) 0 %; HCT 22.4 % (39.0-53.0); HGB 7.6 gm/dL (13.0-17.5); Lymphocytes # (A) 0.1 k/uL (1.0-4.8); Lymphocytes % (A) 2 %; MCH 32.8 pg (25.0-35.0); MCHC 33.7 g/dL (31.0-37.0); MCV 97.1 fL (80.0-100.0); Macrocytosis Slight; Mean Platelet Volume 9.1; Monocytes # (A) 0.1 k/uL (0-1.0); Monocytes % (A) 3 %; Neutrophils # (A) 4.9 k/uL (1.3-7.7); Neutrophils % (A) 95 %; Poikilocytosis Slight; RBC 2.31 m/uL (4.30-5.90); RDW 16.4 % (11.5-15.5); WBC 5.2 k/uL (3.8-10.6)
[2021-11-22 06:50] LABS: Platelet Count 76 k/uL (150-450)
[2021-11-22] MEDS: ASPIRIN 81 MG PO SCH (08:27)
[2021-11-22] MEDS: PANTOPRAZOLE 40 MG/10 ML VIAL IVP SCH (08:27)
[2021-11-22] MEDS: ENOXAPARIN 40 MG/0.4 ML SYRINGE SQ SCH (08:27)
[2021-11-22] MEDS: PROPRANOLOL 20 MG TAB PO SCH (08:27)
[2021-11-22 09:52] LABS: Magnesium 1.5 mg/dL (1.5-2.4)
[2021-11-22 09:58] LABS: African American GFR (CKD) 75.6 (60.0-200.0); Anion Gap 11.9 mmol/L (10.00-18.00); BUN/Creat Ratio 19.16 Ratio (12.00-20.00); Blood Urea Nitrogen 20.5 mg/dL (9.0-27.0); Calcium 7.4 mg/dL (8.7-10.3); Carbon Dioxide 20.3 mmol/L (20.0-27.5); Non-African American GFR(CKD) 65.2 (60.0-200.0); Potassium 3.6 mmol/L (3.5-5.5)
[2021-11-22] MEDS ORDERED: POTASSIUM CHLORIDE ER 20 MEQ TAB.ER PO STA (10:37)
--- NOTE | 2021-11-22 10:37 | P.PN ---
Subjective Patient is seen in follow-up for acute kidney injury. Unknown baseline renal function. Creatinine was 1.71 on admission and was down to 1.1 today. Receiving IV fluids. Oral intake fair. No vomiting or diarrhea. No active bleeding. Hemoglobin improved. Hemodynamically stable. Vital signs are stable. General: The patient appeared well nourished and normally developed. HEENT: Head exam is unremarkable. LUNGS: Breath sounds decreased. HEART: Rate and Rhythm are regular. ABDOMEN: Soft, no distention. EXTREMITITES: No edema. Objective - Vital Signs Vital signs: Vital Signs Temp 97.7 F 11/22/21 05:00 Pulse 67 11/22/21 08:00 Resp 16 11/22/21 08:00 BP 112/68 11/22/21 07:15 Pulse Ox 96 11/22/21 05:00 Intake & Output 11/21/21 11/22/21 11/22/21 18:59 06:59 18:59 Intake Total 510.00 560 Balance 510.00 560 Weight 113.398 kg Intake: Intake, IV Titration 200.00 560 Amount Immune Globulin ( 200.00 Gammagard) 20 gm In Empty Bag 1 bag @ Per Protocol IV .Q0M [facility] Rx#: [id number] Sodium Chloride 0.9% 1, 560 000 ml @ 70 mls/hr IV . [id number] [facility] Rx#:[id number] Blood Product 310 Rc As-1 Unit 310 [id number] Other: Voiding Method Urinal Urinal Urinal # Voids 2 - Labs CBC & Chem 7: 11/22/21 06:06 11/22/21 06:06 Labs: Abnormal Lab Results - Last 24 Hours (Table) 11/19/21 11/22/21 11/22/21 Range/Units 20:53 06:06 06:06 RBC 2.31 L (4.30-5.90) m/uL Hgb 7.6 L (13.0-17.5) gm/dL Hct 22.4 L (39.0-53.0) % RDW 16.4 H (11.5-15.5) % Plt Count 76 L (150-450) k/uL Lymphocytes # 0.1 L (1.0-4.8) k/uL Glucose 188 H (70-110) mg/dL Calcium 7.4 L (8.7-10.3) mg/dL Crossmatch See Detail Microbiology - Last 24 Hours (Table) 11/20/21 06:00 Urine Culture - Preliminary Urine,Voided 11/20/21 11:44 Blood Culture - Preliminary Blood No Growth after 24 hours 11/20/21 11:44 Blood Culture - Preliminary Blood No Growth after 24 hours Assessment and Plan Plan: Assessment: 1. Acute kidney injury mostly prerenal secondary to anemia. Creatinine was 1.71 on admission and was down to 1.1 today. Unknown baseline renal function. UA benign. No hydronephrosis noted on kidney ultrasound. 2. CLL. Oncology following. 3. Acute blood loss anemia/pancytopenia secondary to chemotherapy versus mal ignancy. Has received blood transfusions. Hematology following. Hemoglobin 7.6 today. 4. Hypokalemia from poor intake. Replaced. 5. Hypomagnesemia from poor intake. Plan: Decrease rate of IV fluids to 50 mL an hour. Encouraged oral intake. Avoid nephrotoxins. Blood transfusion per hematology. Continue to monitor renal function and urine output. Replace potassium and magnesium.
[2021-11-22] MEDS: MAGNESIUM SULFATE-D5W PMX 1 GM in DEXTROSE/WATER 1 100ML.BAG IVPB SCH ×2 (11:19→13:07)
--- NOTE | 2021-11-22 14:55 | P.PN ---
Subjective Progress Note Date: 11/22/21 HISTORY OF PRESENT ILLNESS this is an 81-year-old pleasant gentleman, patient of Dr. Sesaylying histo ry of B-cell lymphoma, diagnosed to the testicle lesion, in August 2021, also history of melanoma, and prostate cancer, who now follows by [facility] physician, chemotherapy, for which he has 2 more treatments to go. He goes for chemotherapy, 3 times a week, last treatment, was 2 weeks ago. He felt weak for the past 2-3 days, with diminished appetite, not eating or drinking, he has lightheadedness and dizziness, and has fallen, for the past few days. He was last seen by Dr. Pride PCP, one year ago, however he is fully vaccinated against coronavirus including the booster shot in October. He denies having any fever or chills, headache, isolated motor deficits, in the upper and lower extremity, and no chest pain. Patient denies any syncope next Emergency roomEKG, shows normal sinus rhythm, right bundle branch block, ventricular rate 72, normal TN interval, normal QRS, no change compared to December 2018, hemoglobin on entry was 4.6, WBC count of 3.0, platelet count of 51, patient received 2 units of packed red blood cell. INR 1.2,creatinine of 1.7, sodium of 134, potassium 3.5, BUN of 27 total bilirubin of 1.5, liver function tests otherwise normal, protein is low at 4.6, albumin 2.7, glucose of 126. Patient admitted for dehydration, acute kidney injury, and pancytopenia with severe anemia consult with oncology coronavirus negative Hemoccult negative. Urinalysis negative 11/21: Patient Has been seen by oncology and IVIG was ordered. He has been infused total of 3 units of packed RBCs. CBC 3.2, hemoglobin 6.6, platelet count 57. Haptoglobin 214. IgG 256. Blood cultures are showing no growth. Patient has been afebrile, heart rate 60, blood pressure 154/69, pulse ox 95% on room air. Patient is followed by nephrology and IV fluids decreased to 70 mL per hour, continue to encourage oral intake and avoid nephrotoxins. Renal ultrasound revealed limited assessment of the left kidney due to overlying bowel gas. No hydronephrosis of either kidney. 11/22: Repeat blood work today reveals hemoglobin 7.6, platelet count 76. Electrolyte and renal function normal. Blood sugar 188. Patient had a fever of 101.2 with hypotension 91/51 at 2100. Patient has been afebrile since, heart rate 66, blood pressure 118/73 and pulse ox 99% on room air. Blood cultures no growth at 48 hours. Urine culture is in progress. Patient is followed by nephrology and oncology. IV fluids decreased to 50 ML's per hour. REVIEW OF SYSTEMS Constitutional: No fever, no chills, no night sweats. No weight change. Reports weakness, Reports fatigue Reports lethargy. Reports daytime sleepiness. EENT: No headache. No blurred vision or double vision, no loss of vision. No loss of Hearing, no ringing in the ears, no dizziness. No nasal drainage or congestion. No epistaxis. No sore throat. Lungs: No shortness of breath, cough, no sputum production. No wheezing. Cardiovascular: No chest pain, no lower extremity edema. No palpitations. No paroxysmal nocturnal dyspnea. No orthopnea. No lightheadedness or dizziness. No syncopal episodes. Abdominal: No abdominal pain. No nausea, vomiting. No diarrhea. No constipation. No bloody or tarry stools. No loss of appetite. Genitourinary: No dysuria, increased frequency, urgency. No urinary retention. Musculoskeletal: No myalgias. Reports muscle weakness, no gait dysfunction, no frequent falls. No back pain. No neck pain. Integumentary: No wounds, no lesions. No rash or pruritus. No unusual bruising. No change in hair or nails. Neurologic: No aphasia. No facial droop. No change in mentation. No head injury. No headache. No paralysis. No paresthesia. Psychiatric: No depression. No anxiety. No mood swings. Endocrine: No abnormal blood sugars. Reports weight change. PHYSICAL EXAMINATION Gen: This is an 81-year-old male. His resting in recliner appears to be comfortable and in no acute distress.. HEENT: Head is atraumatic, normocephalic. Pupils equal, round. Sclerae is anicteric. NECK: Supple. No JVD. No lymphadenopathy. No thyromegaly. LUNGS: Clear to auscultation. No wheezes or rhonchi. No intercostal retractions. HEART: Regular rate and rhythm. No murmur. ABDOMEN: Soft. Bowel sounds are present. No masses. No tenderness. EXTREMITIES: Trace pedal edema. No calf tenderness. NEUROLOGICAL: Patient is awake, alert and oriented x3. Cranial nerves 2 through 12 are grossly intact. ASSESSMENT AND PLAN 1. Severe pancytopenia, with symptomatic anemia, hemoglobin on admissionwas 4.6 quite 2 units of packed red blood cell, consult with oncology, for chemotherapy related and cytopenia, we'll need colony stimulating factors last erythropoiesis stimulating agents,check for haptoglobin, iron panel, currently Hemoccult negative regimen includes high-doseprednisone, unknown regimenbut given at 100 mg. Oncology ordered IVIG 2. Dehydration, with acute kidney injury, secondary to ATN, related to diminished oral intake, fluids for hydration, monitor his serial creatinine 3. B-cell lymphoma with original biopsy at left testicle with original diagnosis in August 2021follows by oncology, on chemotherapy. 4. History of melanoma unknown activity 5. History of prostate cancer unknown activity 6. Hypertension, on Inderal 60 mg daily, hold Hydrodiuril secondary to dehydrationhold off losartan 7. Hyperuricemia, on allopurinol 8. Patient had episode of fever with hypotension . GI prophylaxis DVT prophylaxis with Lovenoxand IV Protonix COVID-19 testing negative. Patient has been hospitalized during a pandemic. DISCHARGE PLAN To be determined. Impression and plan of care have been directed as dictated by the signing physician. Radha Zarate nurse practitioner acting as scribe for signing physician. Objective - Vital Signs Vital signs: Vital Signs Temp 97.7 F 11/22/21 05:00 Pulse 67 11/22/21 08:00 Resp 16 11/22/21 08:00 BP 112/68 11/22/21 07:15 Pulse Ox 96 11/22/21 05:00 Intake & Output 11/21/21 11/22/21 11/22/21 18:59 06:59 18:59 Intake Total 510.00 560 Balance 510.00 560 Weight 113.398 kg Intake: Intake, IV Titration 200.00 560 Amount Immune Globulin ( 200.00 Gammagard) 20 gm In Empty Bag 1 bag @ Per Protocol IV .Q0M ONE Rx#: [id number] Sodium Chloride 0.9% 1, 560 000 ml @ 70 mls/hr IV . [id number] [facility] Rx#:[id number] Blood Product 310 Rc As-1 Unit 310 [id number] Other: Voiding Method Urinal Urinal Urinal # Voids 2 - Labs CBC & Chem 7: 11/22/21 06:06 11/22/21 06:06 Labs: Abnormal Lab Results - Last 24 Hours (Table) 11/19/21 11/22/21 11/22/21 Range/Units 20:53 06:06 06:06 RBC 2.31 L (4.30-5.90) m/uL Hgb 7.6 L (13.0-17.5) gm/dL Hct 22.4 L (39.0-53.0) % RDW 16.4 H (11.5-15.5) % Plt Count 76 L (150-450) k/uL Lymphocytes # 0.1 L (1.0-4.8) k/uL Glucose 188 H (70-110) mg/dL Calcium 7.4 L (8.7-10.3) mg/dL Crossmatch See Detail Microbiology - Last 24 Hours (Table) 11/20/21 06:00 Urine Culture - Preliminary Urine,Voided 11/20/21 11:44 Blood Culture - Preliminary Blood No Growth after 24 hours 11/20/21 11:44 Blood Culture - Preliminary Blood No Growth after 24 hours
--- NOTE | 2021-11-22 15:13 | P.PN ---
Subjective Progress Note Date: 11/22/21 Principal diagnosis: pancytopenia 2/2 Tx lymphoma, weakness, falls In f/u today pt denies fever, nausea, he is tolerating oral intake, moderate dry mouth, is SOB with exertion, denies chest pain, weakness and SOB are keeping him from being very active, denies abd pain, acute changes in bowel or bladder, no dysuria, bleeding, swelling in the legs or pain. Objective - Vital Signs Vital signs: Vital Signs Temp 98 F 11/22/21 11:35 Pulse 66 11/22/21 11:35 Resp 20 11/22/21 11:35 BP 118/73 11/22/21 11:35 Pulse Ox 99 11/22/21 11:35 Intake & Output 11/21/21 11/22/21 11/22/21 18:59 06:59 18:59 Intake Total 510.00 560 120 Balance 510.00 560 120 Weight 113.398 kg Intake: Intake, IV Titration 200.00 560 Amount Immune Globulin ( 200.00 Gammagard) 20 gm In Empty Bag 1 bag @ Per Protocol IV .Q0M [facility] Rx#: [id number] Sodium Chloride 0.9% 1, 560 000 ml @ 70 mls/hr IV . [id number] [facility] Rx#:[id number] Oral 120 Blood Product 310 Rc As-1 Unit 310 [id number] Other: Voiding Method Urinal Urinal Urinal # Voids 2 - Constitutional General appearance: Present: average body habitus, cooperative, no acute distress - EENT Eyes: Present: anicteric sclerae, EOMI ENT: Present: hearing grossly normal, normal oropharynx - Respiratory Respiratory: bilateral: CTA - Cardiovascular Rhythm: regular Heart sounds: normal: S1, S2 Abnormal Heart Sounds: Absent: systolic murmur, diastolic murmur, rub, S3 Gallop, S4 Gallop, click, other - Peripheral edema leg Peripheral Edema: bilateral: None - Gastrointestinal General gastrointestinal: Present: normal bowel sounds, soft. Absent: absent bowel sounds, decreased bowel sounds, distended, hepatomegaly, hyperactive bowel sounds, organomegaly, rigid, scaphoid, splenomegaly, tenderness, umbilical hernia, ventral hernia - Integumentary Integumentary: Present: pale - Neurologic Neurologic: Present: CNII-XII intact - Musculoskeletal Musculoskeletal: Present: generalized weakness, strength equal bilaterally - Psychiatric Psychiatric: Present: A&O x's 3, appropriate affect, intact judgment & insight - Allied health notes Allied health notes reviewed: PT - Labs CBC & Chem 7: 11/22/21 06:06 11/22/21 06:06 Labs: Abnormal Lab Results - Last 24 Hours (Table) 11/22/21 11/22/21 Range/Units 06:06 06:06 RBC 2.31 L (4.30-5.90) m/uL Hgb 7.6 L (13.0-17.5) gm/dL Hct 22.4 L (39.0-53.0) % RDW 16.4 H (11.5-15.5) % Plt Count 76 L (150-450) k/uL Lymphocytes # 0.1 L (1.0-4.8) k/uL Glucose 188 H (70-110) mg/dL Calcium 7.4 L (8.7-10.3) mg/dL Microbiology - Last 24 Hours (Table) 11/20/21 11:44 Blood Culture - Preliminary Blood No Growth after 48 hours 11/20/21 11:44 Blood Culture - Preliminary Blood No Growth after 48 hours 11/20/21 06:00 Urine Culture - Preliminary Urine,Voided Assessment and Plan (1) Hypogammaglobulinemia Narrative/Plan: IgG 256. D/W Pharmacist. IVIG given. Recheck level in AM Current Visit: Yes Status: Acute Priority: High Code(s): D80.1 - NONFAMILIAL HYPOGAMMAGLOBULINEMIA SNOMED Code(s): 628804016 (2) Pancytopenia due to antineoplastic chemotherapy Narrative/Plan: WBC adequate at this time. Pt did have fever 101.2F last night. Discussed case with Attending. Will keep pt until AM. Hgb 7.6, anticipated increase after 1 unit. Pt feels a little better Platelets 76,000, no transfusion needed. Ok for DVT prophyaxis Current Visit: Yes Status: Acute Priority: High Code(s): D61.810 - ANTINEOPLASTIC CHEMOTHERAPY INDUCED PANCYTOPENIA; T45.1X5A - ADVERSE EFFECT OF ANTINEOPLASTIC AND IMMUNOSUP DRUGS, INIT SNOMED Code(s): 209697942736889 (3) Generalized weakness Narrative/Plan: 2/2 low counts, chemo. PT/OT ordered. Discussed case with Physical Therapist yesterday. Current Visit: Yes Status: Acute Priority: High Code(s): R53.1 - WEAKNESS SNOMED Code(s): 64771765 (4) Renal insufficiency Narrative/Plan: 2/2 dehydration, no hydronephrosis on US. His BUN/Cr are normal today Current Visit: Yes Status: Acute Priority: High Code(s): N28.9 - DISORDER OF KIDNEY AND URETER, UNSPECIFIED SNOMED Code(s): 655012379 (5) Diffuse large B cell lymphoma Narrative/Plan: Pt has had 4 IT MTX prophylaxis, he is s/p 5/6 R-CHOP with neulasta (11/10), had dose reduction cycle 5. He had imaging last month that showed excellent resp onse to treatment. Supportive care for SE from treatment. Last cycle of treatment will be delayed until pt recovered. Current Visit: No Status: Chronic Priority: Medium Code(s): C83.30 - D IFFUSE LARGE B-CELL LYMPHOMA, UNSPECIFIED SITE SNOMED Code(s): 780346618 Plan: attests: I have seen and examined pt, performed H&P, developed impression and plan of care. Discussed with dictator. Agree with dictation, documented as a scribe.
[2021-11-23] MEDS: SALT AND SODA MOUTHWASH 1,000 ML PO SCH ×4 (00:12→16:17)
[2021-11-23 06:18] LABS: Anisocytosis Slight; Basophils % (A) 1 %; Eosinophils % (A) 0 %; HCT 22.7 % (39.0-53.0); HGB 7.7 gm/dL (13.0-17.5); Lymphocytes # (A) 0.1 k/uL (1.0-4.8); Lymphocytes % (A) 1 %; MCH 32.4 pg (25.0-35.0); MCHC 33.7 g/dL (31.0-37.0); Macrocytosis Slight; Mean Platelet Volume 8.8; Monocytes # (A) 0.3 k/uL (0-1.0); Monocytes % (A) 4 %; Neutrophils # (A) 6.7 k/uL (1.3-7.7); Neutrophils % (A) 94 %; Poikilocytosis Slight; RBC 2.37 m/uL (4.30-5.90); WBC 7.1 k/uL (3.8-10.6)
[2021-11-23 06:54] LABS: Platelet Count 123 k/uL (150-450)
[2021-11-23 07:52] VITALS: RESP 17
[2021-11-23] MEDS: ASPIRIN 81 MG PO SCH (08:47)
[2021-11-23] MEDS: PANTOPRAZOLE 40 MG/10 ML VIAL IVP SCH (08:47)
[2021-11-23] MEDS: PROPRANOLOL 20 MG TAB PO SCH (08:47)
[2021-11-23] MEDS: ENOXAPARIN 40 MG/0.4 ML SYRINGE SQ SCH (08:48)
[2021-11-23] MEDS: allopurinoL 300 MG TAB PO SCH (08:48)
--- NOTE | 2021-11-23 09:37 | P.PN ---
Subjective Patient is seen in follow-up for acute kidney injury. Unknown baseline renal function. Creatinine was 1.71 on admission and was down to 1.1 yesterday. Receiving IV fluids. Oral intake fair. No vomiting or diarrhea. No active bleeding. Hemoglobin improved. Hemodynamically stable. No active complaints. Vital signs are stable. General: The patient appeared well nourished and normally developed. HEENT: Head exam is unremarkable. LUNGS: Breath sounds decreased. HEART: Rate and Rhythm are regular. ABDOMEN: Soft, no distention. EXTREMITITES: No edema. Objective - Vital Signs Vital signs: Vital Signs Temp 98.0 F 11/23/21 07:51 Pulse 94 11/23/21 07:51 Resp 17 11/23/21 07:51 BP 120/76 11/23/21 07:51 Pulse Ox 94 L 11/23/21 05:00 Intake & Output 11/22/21 11/23/21 11/23/21 18:59 06:59 18:59 Intake Total 1540 590 Balance 1540 590 Intake: Intake, IV Titration 600 Amount Sodium Chloride 0.9% 1, 600 000 ml @ 50 mls/hr IV . Q20H [facility] Rx#:[id number] Oral 940 590 Other: Voiding Method Urinal Urinal # Voids 4 2 - Labs CBC & Chem 7: 11/23/21 05:35 11/22/21 06:06 Labs: Abnormal Lab Results - Last 24 Hours (Table) 11/22/21 11/23/21 Range/Units 06:06 05:35 RBC 2.37 L (4.30-5.90) m/uL Hgb 7.7 L (13.0-17.5) gm/dL Hct 22.7 L (39.0-53.0) % RDW 17.0 H (11.5-15.5) % Plt Count 123 L D (150-450) k/uL Lymphocytes # 0.1 L (1.0-4.8) k/uL Glucose 188 H (70-110) mg/dL Calcium 7.4 L (8.7-10.3) mg/dL Microbiology - Last 24 Hours (Table) 11/20/21 06:00 Urine Culture - Final Urine,Voided 11/20/21 11:44 Blood Culture - Preliminary Blood No Growth after 48 hours 11/20/21 11:44 Blood Culture - Preliminary Blood No Growth after 48 hours Assessment and Plan Plan: Assessment: 1. Acute kidney injury mostly prerenal secondary to anemia. Creatinine was 1.71 on admission and was down to 1.1 yesterday. Unknown baseline renal function. UA benign. No hydronephrosis noted on kidney ultrasound. 2. CLL. Oncology following. 3. Acute blood loss anemia/pancytopenia secondary to chemotherapy versus malignancy. Has received blood transfusions. Hematology following. Hemoglobin 7.7 today. 4. Hypokalemia from poor intake. Replaced. 5. Hypomagnesemia from poor intake. Replaced. Plan: Maintain normal saline at 50 mL an hour. Encouraged oral intake. Avoid nephrotoxins. Blood transfusion per hematology. Continue to monitor renal function and urine output.
--- NOTE | 2021-11-23 10:57 | P.DS ---
Providers Date of admission: 11/19/21 20:16 Expected date of discharge: 11/23/21 Attending physician: Michelle Szymanski Consults: 11/19/21 20:17 Consult Physician Urgent Consulting Provider: Pavel Paiz Consult Reason/Comments: pancytopenia, dehydration, renal insufficiency Do you want consulting provider notified?: Yes 11/20/21 09:45 Consult Physician Routine Consulting Provider: Melinda Martinez Consult Reason/Comments: MARIE, TLS? Do you want consulting provider notified?: Yes Primary care physician: [facility] Course: HISTORY OF PRESENT ILLNESS this is an 81-year-old pleasant gentleman, patient of Dr. Sesaylying history of B-cell lymphoma, diagnosed to the testicle lesion, in August 2021, also history of melanoma, and prostate cancer, who now follows by [facility] physician, chemotherapy, for which he has 2 more treatments to go. He goes for chemotherapy, 3 times a week, last treatment, was 2 weeks ago. He felt weak for the past 2-3 days, with diminished appetite, not eating or drinking, he has lightheadedness and dizziness, and has fallen, for the past few days. He was last seen by Dr. Pride PCP, one year ago, however he is fully vaccinated against coronavirus including the booster shot in October. He denies having any fever or chills, headache, isolated motor deficits, in the upper and lower extremity, and no chest pain. Patient denies any syncope next Emergency roomEKG, shows normal sinus rhythm, right bundle branch block, ventricular rate 72, normal [place] interval, normal QRS, no change compared to December 2018, hemoglobin on entry was 4.6, WBC count of 3.0, platelet count of 51, patient received 2 units of packed red blood cell. INR 1.2,creatinine of 1.7, sodium of 134, potassium 3.5, BUN of 27 total bilirubin of 1.5, liver funct ion tests otherwise normal, protein is low at 4.6, albumin 2.7, glucose of 126. Patient admitted for dehydration, acute kidney injury, and pancytopenia with severe anemia consult with oncology coronavirus negative Hemoccult negative. Urinalysis negative 11/21: Patient Has been seen by oncology and IVIG was ordered. He has been infused total of 3 units of packed RBCs. CBC 3.2, hemoglobin 6.6, platelet count 57. Haptoglobin 214. IgG 256. Blood cultures are showing no growth. Patient has been afebrile, heart rate 60, blood pressure 154/69, pulse ox 95% on room air. Patient is followed by nephrology and IV fluids decreased to 70 mL per hour, continue to encourage oral intake and avoid nephrotoxins. Renal ultrasound revealed limited assessment of the left kidney due to overlying bowel gas. No hydronephrosis of either kidney. 11/22: Repeat blood work today reveals hemoglobin 7.6, platelet count 76. Electrolyte and renal function normal. Blood sugar 188. Patient had a fever of 101.2 with hypotension 91/51 at 2100. Patient has been afebrile since, heart rate 66, blood pressure 118/73 and pulse ox 99% on room air. Blood cultures no growth at 48 hours. Urine culture is in progress. Patient is followed by nephrology and oncology. IV fluids decreased to 50 ML's per hour. 11/23: Repeat hemoglobin is 7.7, platelets 123, WBC 7.1. Repeat coronavirus PCR not detected. Patient has been afebrile since 2100 on 11/21. Heart rate 61, blood pressure 114/64, patient is on room air. Patient has been seen by oncology and cleared for discharge. Patient's chemotherapy will be placed on hold until completion of rehab and seen by Dr. Paiz. Discharge plan is for [facility] today. Patient will be discharged in stable condition. DISCHARGE DIAGNOSES 1. Severe pancytopenia, with symptomatic anemia, hemoglobin on admission was 4.6 2. Dehydration, with acute kidney injury, secondary to ATN, related to diminished oral intake 3. B-cell lymphoma with original biopsy at left testicle with original diagnosis in August 2021follows by oncology, on chemotherapy. 4. History of melanoma 5. History of prostate cancer 6. Hypertension 7. Hyperuricemia 8. Fever secondary to atelectasis COVID-19 testing negative. Patient has been hospitalized during a pandemic. DISCHARGE PLAN [facility] for subacute rehab. Greater than 35 minutes was utilized and coordinating patient's discharge. Impression and plan of care have been directed as dictated by the signing physician. Radha Zarate nurse practitioner acting as scribe for signing physician. Patient Condition at Discharge: Stable Plan - Discharge Summary New Discharge Prescriptions: Continue allopurinoL [Zyloprim] 300 mg PO Q48H Potassium Chloride [Potassium Chloride ER] 10 meq PO TID Aspirin [Adult Low Dose Aspirin EC] 81 mg PO DAILY predniSONE 100 mg PO DIRECTED Psyllium Husk [Metamucil] 0.4 gm PO DAILY Docusate [Colace] 100 mg PO DAILY PRN PRN Reason: Constipation ondansetron HCL [Zofran] 8 mg PO Q6H PRN PRN Reason: Nausea Nystatin 100,000 Unit/ml Susp [Mycostatin Oral Susp] 4 ml PO QID PRN PRN Reason: THRUSH Losartan Potassium 100 mg PO DAILY Propranolol HCl [Inderal] 60 mg PO DAILY Niacin 500 mg PO DAILY Discontinued hydroCHLOROthiazide [Hydrodiuril] 25 mg PO DAILY Discharge Medication List Aspirin [Adult Low Dose Aspirin EC] 81 mg PO DAILY 12/27/18 [History] Potassium Chloride [Potassium Chloride ER] 10 meq PO TID 12/27/18 [History] allopurinoL [Zyloprim] 300 mg PO Q48H 12/27/18 [History] Docusate [Colace] 100 mg PO DAILY PRN 11/19/21 [History] Losartan Potassium 100 mg PO DAILY 11/19/21 [History] Niacin 500 mg PO DAILY 11/19/21 [History] Nystatin 100,000 Unit/ml Susp [Mycostatin Oral Susp] 4 ml PO QID PRN 11/19/21 [History] Propranolol HCl [Inderal] 60 mg PO DAILY 11/19/21 [History] Psyllium Husk [Metamucil] 0.4 gm PO DAILY 11/19/21 [History] ondansetron HCL [Zofran] 8 mg PO Q6H PRN 11/19/21 [History] predniSONE 100 mg PO DIRECTED 11/19/21 [History] Follow up Appointment(s)/Referral(s): Pavel Paiz MD [STAFF PHYSICIAN] - 12/01/21 3:15 pm ( ) Piter Pride MD [Primary Care Provider] - 12/05/21 11:00 am Discharge Disposition: TRANSFER TO SNF/F
[2021-11-23] MEDS: SODIUM CHLORIDE 0.9% 1,000 ML IV SCH (11:13)
[2021-11-23 12:15] VITALS: BP 114/64; PULSE 61; TEMP 97.3
--- NOTE | 2021-11-23 14:16 | P.PN ---
Subjective Progress Note Date: 11/23/21 Principal diagnosis: pancytopenia 2/2 Tx lymphoma, weakness, falls In f/u today pt is feeling pretty good, no fevers overnight, he is deciding if he wants [facility] vs home care PT/OT. Denies acute c/o. Objective - Vital Signs Vital signs: Vital Signs Temp 97.3 F L 11/23/21 12:14 Pulse 61 11/23/21 12:14 Resp 17 11/23/21 12:14 BP 114/64 11/23/21 12:14 Pulse Ox 94 L 11/23/21 05:00 Intake & Output 11/22/21 11/23/21 11/23/21 18:59 06:59 18:59 Intake Total 1540 590 720 Output Total 550 Balance 1540 590 170 Intake: Intake, IV Titration 600 Amount Sodium Chloride 0.9% 1, 600 000 ml @ 50 mls/hr IV . Q20H MARIA Rx#:[id number] Oral 940 590 720 Output: Urine 550 Other: Voiding Method Urinal Urinal Toilet # Voids 4 2 2 - Exam Better color today - Constitutional General appearance: Present: average body habitus, cooperative, no acute dist ress - EENT Eyes: Present: anicteric sclerae, EOMI ENT: Present: hearing grossly normal - Respiratory Respiratory: bilateral: CTA - Cardiovascular Rhythm: regular Heart sounds: normal: S1, S2 Abnormal Heart Sounds: Absent: systolic murmur, diastolic murmur, rub, S3 Gallop, S4 Gallop, click, other - Gastrointestinal General gastrointestinal: Present: normal bowel sounds, soft - Integumentary Integumentary: Present: normal - Neurologic Neurologic: Present: CNII-XII intact - Musculoskeletal Musculoskeletal: Present: generalized weakness - Psychiatric Psychiatric: Present: A&O x's 3, appropriate affect, intact judgment & insight - Allied health notes Allied health notes reviewed: case management - Labs CBC & Chem 7: 11/23/21 05:35 11/22/21 06:06 Labs: Abnormal Lab Results - Last 24 Hours (Table) 11/23/21 Range/Units 05:35 RBC 2.37 L (4.30-5.90) m/uL Hgb 7.7 L (13.0-17.5) gm/dL Hct 22.7 L (39.0-53.0) % RDW 17.0 H (11.5-15.5) % Plt Count 123 L D (150-450) k/uL Lymphocytes # 0.1 L (1.0-4.8) k/uL Microbiology - Last 24 Hours (Table) 11/20/21 11:44 Blood Culture - Preliminary Blood No Growth after 72 hours 11/20/21 11:44 Blood Culture - Preliminary Blood No Growth after 72 hours 11/20/21 06:00 Urine Culture - Final Urine,Voided Assessment and Plan (1) Hypogammaglobulinemia Narrative/Plan: IgG 256. D/W Pharmacist. IVIG given. Current Visit: Yes Status: Acute Priority: High Code(s): D80.1 - NONFAMILIAL HYPOGAMMAGLOBULINEMIA SNOMED Code(s): 505466665 (2) Pancytopenia due to antineoplastic chemotherapy Narrative/Plan: recovered post chemo Current Visit: Yes Status: Acute Priority: High Code(s): D61.810 - ANTINEOPLASTIC CHEMOTHERAPY INDUCED PANCYTOPENIA; T45.1X5A - ADVERSE EFFECT OF ANTINEOPLASTIC AND IMMUNOSUP DRUGS, INIT SNOMED Code(s): 177218193760520 (3) Generalized weakness Narrative/Plan: 2/2 low counts, chemo. Discussed with Ground Services Instructor and son. Pt has agreed to [facility] Current Visit: Yes Status: Acute Priority: High Code(s): R53.1 - WEAKNESS SNOMED Code(s): 56003781 (4) Renal insufficiency Narrative/Plan: 2/2 dehydration, no hydronephrosis on US. BUN/Cr were normal yesterday Current Visit: Yes Status: Acute Priority: High Code(s): N28.9 - DISORDER OF KIDNEY AND URETER, UNSPECIFIED SNOMED Code(s): 460151288 (5) Diffuse large B cell lymphoma Narrative/Plan: Pt has had 4 IT MTX prophylaxis, he is s/p / R-CHOP with neulasta (11/10), had dose reduction cycle 5. He had imaging last month that showed excellent res ponse to treatment. Supportive care for SE from treatment. Last cycle of treatment will be delayed until completion of rehab and pt has seen Dr. Paiz. Current Visit: No Status: Chronic Priority: Medium Code(s): C83.30 - DIFFUSE LARGE B-CELL LYMPHOMA, UNSPECIFIED SITE SNOMED Code(s): 442943415 Plan: attests: I have seen and examined pt, performed H&P, developed impression and plan of care. Discussed with dictator. Agree with dictation, documented as a scribe.
== END 2021-11-23 16:20 | DRG 808 ==
LOC: EC 18:19 → 5NMEDONC 20:16
PROVIDERS: ADMIT Family Medicine; ATTEND Family Medicine
PROC: 30233N1 Transfusion of Nonautologous Red Blood Cells into Peripheral Vein, Percutaneous Approach (ICD-10-PCS; principal; 2021-11-19)
DX: D61.810 Antineoplastic chemotherapy induced pancytopenia (principal); N17.0 Acute kidney failure with tubular necrosis; C83.30 Diffuse large B-cell lymphoma, unspecified site; C91.10 Chronic lymphocytic leukemia of B-cell type not having achieved remission; D80.1 Nonfamilial hypogammaglobulinemia; J98.11 Atelectasis; D62 Acute posthemorrhagic anemia; E83.42 Hypomagnesemia; E86.0 Dehydration; E87.6 Hypokalemia; N18.30 Chronic kidney disease, stage 3 unspecified; Z20.822 Contact with and (suspected) exposure to COVID-19; I12.9 Hypertensive chronic kidney disease with stage 1 through stage 4 chronic kidney disease, or unspecified chronic kidney disease; T45.1X5A Adverse effect of antineoplastic and immunosuppressive drugs, initial encounter; Z79.82 Long term (current) use of aspirin; Z79.899 Other long term (current) drug therapy; Z80.42 Family history of malignant neoplasm of prostate; Z82.3 Family history of stroke; Z85.46 Personal history of malignant neoplasm of prostate; Z85.820 Personal history of malignant melanoma of skin; Z87.891 Personal history of nicotine dependence
CPT/HCPCS: 36415; 71045; 76770; 80048; 80053; 81003; 82272; 82728; 82784; 83010; 83540; 83550; 83605; 83615; 83735; 84100; 84443; 84484; 84550; 85025; 85379; 85610; 85730; 86850; 86900; 86901; 86920; 87040; 87086; 87635; 93005; 96360; 99291

== ENCOUNTER → 2021-12-16 | Outpatient (CLI) | payer MEDICARE, OTHER ==
--- NOTE | 2021-12-16 12:32 | CT ---
EXAMINATION TYPE: CT angio chest DATE OF EXAM: 12/16/2021 COMPARISON: None HISTORY: Pulmonary Embolism CT DLP: 458.9 mGycm CONTRAST: CT chest with contrast and 3D reconstruction with MIP imaging is performed with IV Contrast, patient injected with 72 mL of Isovue 370. Contrast-enhanced CT of the chest was performed through the course of the pulmonary arteries with magnolia g and mediastinal window settings submitted. 3D reconstruction with MIP imaging was also performed. PULMONARY ARTERIES: The pulmonary arteries and their major tributaries are patent. I do not see eliecer dence for sizable filling defect to suggest pulmonary embolic process. LUNGS: Scattered airspace infiltrates are noted greatest in the left lung compatible with underlying pneumonia. No evidence for atelectasis. No pulmonary nodule or mass is detected. No pleural effusi on. MEDIASTINUM: Thoracic aorta is of normal caliber. The heart is mildly enlarged. No evidence for med iastinal mass. No mediastinal lymph nodes greater than 1cm. HILAR STRUCTURES: No evidence for mass. No hilar lymph nodes greater than 1 cm. UPPER ABDOMEN: Cholelithiasis noted. IMPRESSION: 1. No evidence for Pulmonary embolism at this time.
== END | disposition home or self-care (01) ==
LOC: RADCTMAIN 11:00
PROVIDERS: ATTEND Internal Medicine Geriatric Medicine
DX: Z03.89 Encounter for observation for other suspected diseases and conditions ruled out (principal)
CPT/HCPCS: 71275; Q9967